=== PATIENT | female | born 1985 | race Hispanic/Latino ===

== ENCOUNTER 2022-03-14 20:34 | Emergency (ER) | payer SELFPAY ==
--- OUTSIDE RECORDS SUMMARY | 2022-03-14 20:39 | XMS REPORT | Continuity of Care Document ---
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 [address] boss 38 [id number] Memoria 16:30:00 05:59:59 Clinic r [place] 14 nalini Moe 2018-05-21 2018-05-21 Outpatient Magalis [facility] [id number] 10:30:00 23:59:59 [facility] 2018-05-21 2018-05-21 Outpatient MHIE IE [id number] Memoria 10:30:00 10:30:00 14 nalini Rosa 2018-05-11 2018-05-11 Ambulatory nullFlavo [facility] [address] boss 3 [id number] Memoria 15:15:00 15:15:00 Pre-Reg r [place] 10 nalini Rosa 2018-05-11 2018-05-11 Outpatient IE IE [id number] Memoria 09:15:00 09:15:00 10 nalini Rosa 2018-05-11 2018-05-11 Outpatient Magalis [facility] [id number] 09:15:00 09:15:00 Arabella [facility] 2018-04-23 2018-04-24 OP Poiser nullFlavo 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 3 [id number] Memoria 16:45:00 05:59:59 r [place] 12 nalini [place] 2018-03-26 2018-03-27 [address]avo [facility] [address] boss 3 [id number] Memoria 16:00:00 05:59:59 r [place] 11 nalini Moe 2018-03-26 2018-03-26 [facility] [id number] 10:45:00 23:59:59 Arabella 12 [place] 2018-03-26 2018-03-26 [facility] [id number] 10:00:00 23:59:59 Arabella [facility] 2018-03-26 2018-03-26 Outpatient MHIE MHIE [id number] Memoria 10:45:00 10:45:00 12 nalini [place] 2018-03-26 2018-03-26 Outpatient MHIE MHIE [id number] Memoria 10:00:00 10:00:00 11 nalini Moe 2018-02-26 2018-02-28 [address] [place] [address] boss [id number] Memoria 14:40:00 05:59:59 Message r [place] 00 nalini Rosa 2018-02-26 2018-02-27 [facility] [id number] 08:40:00 23:59:59 00 2018-02-13 2018-02-14 Outpatient nullFlavo [place] [address] boss 3 [id number] Memoria 15:00:00 05:59:59 r [place] 09 nalini Moe 2018-02-13 2018-02-13 [facility] [id number] 09:00:00 23:59:59 Arabella 09 Dip[place]ird[place] 2018-02-13 2018-02-13 Outpatient MHIE MHIE [id number] Memoria 09:00:00 09:00:00 09 nalini Rosa 2017-03-18 2017-03-18 Emergency [facility] [id number] Memoria 03:06:00 04:30:00 karen Rosa 03 nalini esquivel 2017-03-17 2017-03-17 Outpatient Marvel, MHSL MHSL [id number] 21:06:00 22:30:00 Anastasiya Juan Antonio Pyle 2016-09-19 2016-09-19 Outpatient MHIE MHIE [id number] Memoria 14:00:00 14:00:00 08 nalini Rosa 2016-09-16 2016-09-16 Outpatient MHIE MHIE [id number] Memoria 09:15:00 09:15:00 07 nalini Rosa 2016-05-27 2016-05-27 Outpatient MHIE MHIE [id number] Memoria 13:45:00 13:45:00 06 nalini Rosa 2016-02-15 2016-02-15 Outpatient MHIE MHIE [id number] Memoria 11:30:00 11:30:00 05 nalini Rosa 2015-10-26 2015-10-26 Outpatient MHIE MHIE [id number] Memoria 11:30:00 11:30:00 04 nalini Rosa 2015-08-07 2015-08-07 Outpatient MHIE MHIE [id number] Memoria 13:30:00 13:30:00 03 nalini Rosa 2014-12-10 2014-12-10 Outpatient MHIE MHIE [id number] Memoria 15:00:00 15:00:00 02 nalini Rosa 2014-11-07 2014-11-07 Outpatient MHIE MHIE [id number] Memoria 15:00:00 15:00:00 01 nalini Rosa 2014-11-07 2014-11-07 Outpatient MHIE MHIE [id number] Memoria 14:30:00 14:30:00 00 nalini Rosa Results Test Description Test Time Test Comments Results Result Comments Source POCT TEST 2022-02-10 14:27:00 Test Item Value Reference Range Interpretation Comme nts POCT PREG (test code = 1605) Positive On board controls acceptable with C Yes Line (test code = 3574) POCT PREG LOT # (test code = 3575) POCT PREG TEST DATE (test code = 3576) JEMAL (test code = JEMAL) accurate development and interpretation of all internal controls [facility] [id number] 04:44:25 Test Item Value Reference Range Interpretation Comments CHOLESTEROL (test 179 MG/DL <200 code = 2210) TRIGLYCERIDES (test 75 MG/DL <150 code = 2232) HDL CHOLESTEROL (test 49 MG/DL >39 code = 2220) CALC LDL CHOL (test 113 MG/DL <100 H NOTE: C ALCULATED LDL code = 2237) IS BASED ON ALEJANDRA-COLUNGA METHOD WHICHINCLUDES ADJUSTABLE TRIGLYCERIDE:VL DL CHOLESTEROL RAT IO.THIS FACTOR VARIES B Y MEASURED TRIGLY CERIDE AND NON-HDLCHOL ESTEROL CONCENTRATIONS WITH INCREASED CALCU LATED LDL SEENIN HIGH ER TRIGLYCERIDE OR LOWER NON-HDL SPECIME NS. FOR MOREINFORMATION , SEE CLIENT ANNOUNCE MENT AT [email or web address] LDL/HDL 2.31 RATIO <3.22 UNLESS O THERWISE (test code = 2238) INDICATED , ALL TESTING PERFORMED [facility], [address] DIRECTOR: DUNCAN HUANG M.D. CLIA NUMBER [id number] CAP ACCREDITATION N O. [id number] COMPREHENSIVE METABOLIC [id number] 04:44:25 Test Item Value Reference Range Interpretation Comments GLUCOSE (test code = 87 MG/DL 70-99 2216) BUN (test code = 9 MG/DL 6-20 2207) CREATININE (test 0.56 MG/DL 0.60-1.30 L EFFECTIVE code = 2214) 03/08/2021, [facility] HAS IMPLEMENTED THE NKF-ASN RECOMME NDED KD-EPI EGF R REFIT CALCULATI ON THAT DOES NOT INCLUDE A COEFFICIENT FOR RACE. FOR MORE INFORMATION, SE E ANNOUNCEMENT [email or web address] eGFR (2020 CKD-EPI) 124 >60 (test code = 07236) ML/MIN/1.73 CALC BUN/CREAT (test 16 RATIO 6-28 code = 2235) SODIUM (test code = 141 MEQ/L 815-275 4642) POTASSIUM (test code 4.5 MEQ/L 3.5-5.4 = 2227) CHLORIDE (test code 105 MEQ/L 95-107 = 2215) CARBON DIOXIDE (test 27 MEQ/L 19-31 code = 220) CALCIUM (test code = 9.4 MG/DL 8.5-10.5 2208) PROTEIN, TOTAL (test 7.2 G/DL 6.1-8.3 code = 2229) ALBUMIN (test code = 4.4 G/DL 3.5-5.2 2200) CALC GLOBULIN (test 2.8 G/DL 1.9-3.7 code = 2240) CALC A/G RATIO (test 1.6 RATIO 1.0-2.6 code = 2234) BILIRUBIN, TOTAL 0.2 MG/DL See_Comment [Automated message] (test code = 2206) The syste m which generated this result transmit luana reference range : <=1.2. The refe rence range was not u sed to interpret th is result as normal/abnormal . ALKALINE PHOSPHATASE 89 U/L 40-114 (test code = 2203) AST (test code = 28 U/L 9-40 2217) ALT (test code = 28 U/L 5-40 2218) TSH, THIRD [id number] 04:29:28 Test Item Value Reference Range Interpretation Comments TSH, THIRD GENERATION (test code 1.430 UIU/ML 0.400-4.100 = 2821) HEMOGLOBIN [id number] 03:59:27 Test Item Value Reference Range Interpretation Comments HEMOGLOBIN A1c (test code = 87569) 5.3 % 4.2-5.6 CBC W/AUTO DIFF WITH [id number] 03:18:31 Test Item Value Reference Range Interpretation Comments WBC (test code = 4.9 K/UL 3.5-11.0 1001) RBC (test code = 4.00 M/UL 3.80-5.40 1002) HEMOGLOBIN (test code 12.8 G/DL 11.5-15.5 = 1003) HEMATOCRIT (test code 36.9 % 34.0-45.0 = 1004) MCV (test code = 92.3 fL 80.0-99.0 1005) MCH (test code = 32.0 PG 25.0-33.0 1006) MCHC (test code = 34.7 G/DL 31.0-36.0 1007) RDW (test code = 11.5 % 11.5-15.0 1038) NEUTROPHILS (test 49.5 % NOTE: EFF ECTIVE code = 1008) 02/15/2021, REFERENCE INTER VALS AND FLAGGING FORRELATIVE (%) WBC DIFFERENTIAL WI LL BE ELIMINATED REDUNDANT TOABS OLUTE COUNTS.SEE [email or web address] _upda te LYMPHOCYTES (test 37.7 % code = 1010) MONOCYTES (test code 7.1 % = 1011) EOSINOPHILS (test 4.9 % code = 1012) BASOPHILS (test code 0.6 % = 1013) IMMATURE GRANYLOCYTES 0.2 % (test code = 1036) NUCLEATED RBCS (test 0.0 /100 See_Comment [Autom ated message] code = 1065) WBC'S The system [employer] generated this result transmit luana reference range : 0.0. The refere nce range was not u sed to interpret th is result as normal/abnormal . PLATELET COUNT (test 233 K/UL 130-400 code = 1015) ABSOLUTE NEUTROPHILS 2.43 K/UL 1.50-7.50 (test code = 1066) ABSOLUTE LYMPHOCYTES 1.85 K/UL 1.00-4.00 (test code = 1067) ABSOLUTE MONOCYTES 0.35 K/UL 0.20-1.00 (test code = 1068) ABSOLUTE EOSINOPHILS 0.24 K/UL 0.00-0.50 (test code = 1040) ABSOLUTE BASOPHILS 0.03 K/UL 0.00-0.20 (test code = 1069) ABS IMMATURE 0.01 K/UL 0.00-0.10 GRANULOCYTES (test code = 1020) ABS NUCLEATED RBCS 0.00 K/UL 0.00-0.11 (test code = 92054) [id number] 09:15:00 Test Item Value Reference Range Interpretation Comments Hct (test code = Hct) 31.6 36.0-48.0 [id number] 09:15:00 Test Item Value Reference Range Interpretation Comments Hgb (test code = Hgb) 10.8 12.0-16.0 [facility] BANK [id number] 22:51:00 Test Item Value Reference Range Interpretation Comments Antibody Scrn (test Positive 2(10/18/18 code = Antibody Scrn) 5:51 PM) [facility] [id number] 22:51:00 Test Item Value Reference Range Interpretation Comments ABO/Rh (test code = ABO/Rh) O NEG [facility] [id number] 22:51:00 Test Item Value Reference Range Interpretation Comments AB Int (test code = AB Int) Rhig Anti-D [id number] 22:51:00 Test Item Value Reference Range Interpretation Comments WBC (test code = WBC) 9.8 3.7-10.4 [id number] 22:51:00 Test Item Value Reference Range Interpretation Comments MCV (test code = MCV) 94.4 80.0-98.0 [facility] [id number] 22:51:00 Test Item Value Reference Range Interpretation Comments Hct (test code = Hct) 36.0 36.0-48.0 [facility] [id number] 22:51:00 Test Item Value Reference Range Interpretation Comments Hgb (test code = Hgb) 12.3 12.0-16.0 [facility] [id number] 22:51:00 Test Item Value Reference Range Interpretation Comments RBC (test code = RBC) 3.81 4.20-5.40 [id number] 22:51:00 Test Item Value Reference Range Interpretation Comments MCHC (test code = MCHC) 34.1 32.0-36.0 [facility] [id number] 22:51:00 Test Item Value Reference Range Interpretation Comments MCH (test code = MCH) 32.2 pg 27.0-31.0 [facility] [id number] 22:51:00 Test Item Value Reference Range Interpretation Comments MPV (test code = MPV) 9.9 7.4-10.4 [facility] LufkinJwcxqwxDDZXFFVCJZ5120-40-05 22:51:00 Test Item Value Reference Range Interpretation Comments Platelet (test code = Platelet) 261 133-450 [facility] L[id number] 22:51:00 Test Item Value Reference Range Interpretation Comments RDW (test code = RDW) 12.8 11.5-14.5 [facility] [id number] 22:51:00 Test Item Value Reference Range Interpretation Comments Monocytes # (test code 0.7 See_Comment [Aut omated message] The = Monocytes #) system which generated this result tra nsmitted reference range : <=0.8. The reference r santos was not used to int erpret this result as normal/abnormal . [id number] 22:51:00 Test Item Value Reference Range Interpretation Comments Lymphocytes # (test code = Lymphocytes 1.7 1.0-5.5 #) [facility] [id number] 22:51:00 Test Item Value Reference Range Interpretation Comments Neutrophils # (test code = Neutrophils 7.4 1.5-8.1 #) [id number] 22:51:00 Test Item Value Reference Range Interpretation Comments Basophils (test code = 0.3 See_Comment [Aut omated message] The Basophils) system which ge nerated this result tra nsmitted reference range : <=1.0. The reference r santos was not used to int erpret this result as normal/abnormal . [facility] [id number] 22:51:00 Test Item Value Reference Range Interpretation Comments Eosinophils (test code = 0.2 See_Comment [A utomated message] The Eosinophils) system which ge nerated this result tra nsmitted reference range : <=4.0. The reference r santos was not used to int erpret this result as normal/abnormal . [facility]ufkinSxpmqdmXPMWBNUOLT6794-24-51 22:51:00 Test Item Value Reference Range Interpretation Comments Monocytes (test code = Monocytes) 6.6 2.0-12.0 [facility] [id number] 22:51:00 Test Item Value Reference Range Interpretation Comments Segs (test code = Segs) 75.2 45.0-75.0 [facility] [id number] 22:51:00 Test Item Value Reference Range Interpretation Comments Lymphocytes (test code = Lymphocytes) 17.7 20.0-40.0 [facility]woodStkdtmsSKZSPEAWLE8365-18-29 22:51:00 Test Item Value Reference Range Interpretation Comments Hep Bs Ag (test code Negative *NA*(10/18/18 = Hep Bs Ag) 5:51 PM) [id number] 22:51:00 Test Item Value Reference Range Interpretation Comments Treponemal Ab (test code Non-Reactive = Treponemal Ab) *NA*(10/18/18 5:51 PM) [facility]AirpxpbKNLIIYKEVC6805-64-20 22:51:00 Test Item Value Reference Range Interpretation Comments HIV. (test code = Negative *NA*(10/18/18 HIV.) 5:51 PM) [facility] [id number] 03:18:00 Test Item Value Reference Range Interpretation Comments Grp A Strep Scr (test Negative (03/17/17 9:18 code = Grp A Strep PM) Scr) [facility]ann[facility] - [id number] 03:18:00 Test Item Value Reference Range Interpretation Comments Influ A (test code = Negative (03/17/17 9:18 Influ A) PM) [facility] - [id number] 03:18:00 Test Item Value Reference Range Interpretation Comments Influ B (test code = Negative (03/17/17 9:18 Influ B) PM) [facility] 2016-10-11 10:44:00 Test Item Value Reference Range Interpretation Comments TROPONIN I (test code = A84) <0.015 ng/mL 0.000-0.045 CKMB (test code = A49) <1.0 ng/mL <=3.6 CPK (test code = 32A) 71 IU/L 26-192 COMPREHENSIVE METABOLIC YU 2016-10-11 10:41:00 Test Item Value Reference Range Interpretation Comments GLUCOSE (test code = 06D) 97 mg/dL 75-100 SODIUM (test code = 01A) 139 mmol/L 136-145 POTASSIUM (test code = 01B) 4.1 mmol/L 3.6-5.1 CHLORIDE (test code = 04A) 106 mmol/L 98-107 CO2 (test code = 02A) 26 mmol/L 22-32 ANION GAP (test code = ANG) 11.1 mmol/L BUN (test code = 05D) 10 mg/dL 7-18 CREATININE (test code = 03E) 0.6 mg/dL 0.4-1.1 BUN/CREA (test code = BCR) 16 12-20 CALCIUM (test code = 09D) 8.5 mg/dL 8.3-9.5 BILI TOTAL (test code = 11A) 0.3 mg/dL 0.2-1.0 PROTEIN (test code = 07D) 7.9 g/dL 6.4-8.2 ALBUMIN (test code = 08D) 4.0 g/dL 3.5-4.8 GLOBULIN (test code = GLB) 3.9 g/dL 1.5-3.8 H ALB/GLOB (test code = AGRR) 1.0 1.0-2.6 ALK PHOS (test code = 35A) 100 IU/L 42-121 AST (test code = 30A) 21 IU/L <=42 ALT (test code = 31A) 21 IU/L <=78 CBC (INCLUDES AUTOMATED DIFFERENTIAL)*[id number] 10:21:00 Test Item Value Reference Range Interpretation Comments WBC (test code = WBC) 5.5 10\\S\\3/uL 4.5-11.0 RBC (test code = RBC) 3.97 10\\S\\6/uL 4.30-5.70 L HGB (test code = HBG) 12.7 g/dL 12.0-15.5 HCT (test code = HCT) 38.4 % 35.0-44.0 MCV (test code = MCV) 96.7 fL 81.0-99.0 MCH (test code = MCH) 32.0 pg 27.0-31.0 H MCHC (test code = MCHC) 33.1 g/dL 32.0-36.0 RDW (test code = RDW) 11.6 % 11.5-14.5 PLT (test code = PLT) 246 10\\S\\3/uL 130-400 MPV (test code = MPV) 11.4 fL 9.4-12.4 NEUTROP # (test code = NE#) 3.4 10\\S\\3/uL 1.6-8.0 LYMPH # (test code = LY#) 1.7 10\\S\\3/uL 1.1-3.5 MONOCYTE # (test code = MO#) 0.3 10\\S\\3/uL 0.0-1.1 EOSINOPH # (test code = EO#) 0.1 10\\S\\3/uL 0.0-0.7 BASOPHIL # (test code = BA#) 0.1 10\\S\\3/uL 0.0-0.3 IG # (test code = IG#) 0.01 10\\S\\3/uL 0.00-0.06 NRBC # (test code = NRBC#) 0.00 10\\S\\3/uL 0.00-0.01 NEUTROPH % (test code = NE%) 61.4 % 35.0-73.0 LYMPH % (test code = LY%) 30.1 % 20.0-55.0 MONO % (test code = MO%) 6.1 % 2.5-10.0 EOSINOPH % (test code = EO%) 1.3 % 0.0-5.0 BASOPHIL % (test code = BA%) 0.9 % 0.0-2.0 IG % (test code = IG%) 0.2 % 0.0-0.8 NRBC% (test code = NRBC%) 0.0 % 0.0-0.2 MANDIFF (test code = WMDIFF) NO NO RBC MORPH (test code = NORMAL WRBCMOR) XR CHEST 1 VIEW PORTABLE 2016-10-11 10:13:23Portable AP chest, 1 viewLocation Code: [id number] HISTORY: CPCOMPARISON: 12/19/11COMMENT: The lungs are clear and well inflated. The costophrenic angles are sharp. Thecardiomediastinal silhouette is unremarkable. The bones are intact.IMPRESSION: No acute abnormality
[2022-03-14 21:04] LABS: Urine Blood 2+ (Negative); Urine Glucose Negative (Negative); Urine Protein Negative (Negative); Urine Specific Gravity >=1.030 (1.005-1.030); Urine pH 5.5 (5.0-7.0)
[2022-03-14 21:17] LABS: Urine Bacteria None Seen /HPF (<20); Urine Mucus 1+ /HPF (None Seen); Urine RBC <5 /HPF (None Seen)
[2022-03-14 21:21] LABS: Absolute Lymphocytes (CBC) 1.6 K/uL (0.7-4.9); Hematocrit 35.2 % (36.0-45.0); Lymphocytes % 31.4 % (15.3-44.8); MCV 93.9 fL (80-100); MPV 9.1 fL (7.6-11.3); RBC Red Blood Cell Count 3.75 M/uL (3.86-4.86)
[2022-03-14 21:50] LABS: Potassium 3.2 mmol/L (3.5-5.1)
--- NOTE | 2022-03-14 22:20 | RAD REPORT ---
EXAM DESCRIPTION: US - Transvaginal OB - 03/14/2022 10:05 pm CLINICAL HISTORY: with pelvic pain COMPARISON: None. FINDINGS: The uterus measures 10 x 5 x 6 centimeters. A normal appearing gestational sac is present within the endometrium. Within this is a yolk sac and pole with a crown-rump length 0.4 centim eters. Cardiac activity was not visualized Right and left ovary appear normal. Left ovary normal in size and echotexture. Right ovary not visualized secondary to overlying bowel ga s No significant free fluid is seen. IMPRESSION: Single intrauterine with an estimated gestational age 6 weeks 2 days GRACIA 10/25 Cardiac activity at not visualized. This may simply be secondary to the early gestation and technical factors. Failed is another consideration. It is recommended that the patient have a follow up endovaginal sonogram in 1 week for re-evaluation
[2022-03-14 22:28] LABS: Urine Specific Gravity/Preg >1.030 (1.005-1.030)
--- NOTE | 2022-03-14 22:30 | ER ---
Nurse's Notes [facility] Name: Lizz Malagon Age: 36 yrs Sex: Female : 1985 Arrival Date: 03/14/2022 Time: 20:37 Bed 5 Private MD: Diagnosis: Threatened Presentation: 03/14 20:50 Chief complaint: Light vaginal bleeding and pain in low back and lower abdomen since hb this afternoon. Reports positive home test, LMP 01/13, . Coronavirus screen: At this time, the client does not indicate any symptoms associated with coronavirus-19. Ebola Screen: No symptoms or risks identified at this time. Initial Sepsis Screen: Does the patient meet any 2 criteria? No. Patient's initial sepsis screen is negative. Does the patient have a suspected source of infection? No. Patient's initial sepsis screen is negative. Risk Assessment: Do you want to hurt yourself or someone else? Patient reports no desire to harm self or others. Onset of symptoms was March 14, 2022. 20:50 Method Of Arrival: Ambulatory 20:50 Acuity: IESHA 3 Triage Assessment: 21:11 General: Appears in no apparent distress. comfortable, Behavior is calm, cooperative, aa9 appropriate for age. Pain: Complains of pain in lower abd, lower back Pain currently is 6 out of 10 on a pain scale. Quality of pain is described as crampy. Neuro: Level of Consciousness is awake, alert, obeys commands, Oriented to person, place, time, situation. Cardiovascular: Patient's skin is warm and dry. Respiratory: Airway is patent Respiratory effort is even, unlabored. GI: No signs and/or symptoms were reported involving the gastrointestinal system. : Reports vaginal bleeding that is spotty. Derm: Skin is intact, is healthy with good turgor. 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 - Family history:: not pertinent. - Social history:: Smoking status: unknown. - Hospitalizations: : No recent hospitalization is reported. Screenin:13 Nutritional screening: No deficits noted. Tuberculosis screening: No symptoms or risk aa9 factors identified. Fall Risk No fall in past 12 months (0 pts). No secondary diagnosis (0 pts). IV access (20 points). Ambulatory Aid- None/Bed Rest/Nurse Assist (0 pts). Gait- Normal/Bed Rest/Wheelchair (0 pts) Mental Status- Oriented to own ability (0 pts). Total Tyson Fall Scale indicates No Risk (0-24 pts). 21:14 Abuse screen: Denies threats or abuse. Denies injuries from another. aa9 03/15 00:01 [facility] ED Fall Risk Assessment (Adult) History of falling in the last 3 months, aa9 including since admission No falls in past 3 months (0 pts). Humpty Dumpty Scale Fall Assessment Tool (age< 18yrs) Age 13 years and above (1 pt) Gender Female (1 pt) Diagnosis Other diagnosis (1 pt) Cognitive Impairments Oriented to own ability (1 pt) Environmental Factors Outpatient area (1 pt) Response to Surgery/Sedation/Anesthesia More than 48 hours/ None (1 pt) Medication Usage Other medications/ None (1 pt) Fall Risk Score/ Level Low Fall Risk: </= 11 points Oriented to surroundings, Educated pt \T\ family on fall prevention, incl. call for assistance when getting out of bed. Assessment: 03/14 22:51 Reassessment: Patient appears in no apparent distress at this time. aa9 22:55 Reassessment: discharge pending RhoGAM shot. aa9 Vital Signs: 20:50 BP 119 / 81; Pulse 69; Resp 16; Temp 98.3; Pulse Ox 100% on R/A; Weight 65.77 kg; hb Height 5 ft. 2 in. (157.48 cm); Pain 6/10; 20:50 Body Mass Index 26.52 (65.77 kg, 157.48 cm) hb ED Course: 20:37 Patient arrived in ED. as 20:39 Ken Bello MD is Attending Physician. rn 20:53 Triage completed. hb 20:54 Arm band placed on. hb 21:11 Sydney Diego, RN is Primary Nurse. aa9 21:12 No provider procedures requiring assistance completed. Inserted saline lock: 20 gauge aa9 in right antecubital area, using aseptic technique. Blood collected. 21:13 Abo/rh Typing Sent. aa9 21:13 Basic Metabolic Panel Sent. aa9 21:13 CBC with Diff Sent. aa9 21:13 Quantitative Hcg Sent. aa9 21:13 Urine Microscopic Only Sent. aa9 21:16 Patient has correct armband on for positive identification. Bed in low position. Call aa9 light in reach. Adult w/ patient. 22:07 US Transvaginal Ob In Process Unspecified. EDMS 03/15 00:01 IV discontinued, intact, bleeding controlled, No redness/swelling at site. Pressure aa9 dressing applied. Administered Medications: 03/14 23:54 Drug: RhoGAM (Human) 300 mcg Route: IM; Site: left ventrogluteal; aa9 Medication: 21:16 VIS not applicable for this client. aa9 Outcome: 22:30 Discharge ordered by . rn 03/15 00:00 Discharged to home ambulatory, with family. aa9 Condition: stable Discharge instructions given to patient, family, Instructed on discharge instructions, follow up and referral plans. Demonstrated understanding of instructions, follow-up care. 00:01 Patient left the ED. aa9 Signatures: Dispatcher [employer] ANDREWHI Katherine Elam Roman, MD MD rn Baxter, Heather, RN RN hb Avalos, Aylin, RN RN aa9
--- NOTE | 2022-03-14 22:30 | EDPHYS ---
Physician Documentation [facility] Name: Lizz Malagon Age: 36 yrs Sex: Female : 1985 Arrival Date: 03/14/2022 Time: 20:37 Bed 5 Private MD: ED Physician Ken Bello HPI: 03/14 21:11 This 36 yrs old Female presents to ER via Ambulatory with complaints of rn Vaginal Bleeding, + Preg <12wks, Low Back Pain, Abdominal Pain. 21:11 The patient presents to the emergency department with abdominal pain, of the suprapubic rn area, that started today, described as crampy, vaginal bleeding, that is light, with no clots. The estimated gestational age is 8 weeks. course: care: none, Leakage of Fluid: none appreciated, Ultrasound: the patient has not had an ultrasound. Previous pregnancies: in previous pregnancies patient has had. Associated signs and symptoms: Pertinent positives: abdominal pain, Pertinent negatives: chest pain, fever, frequency, seizure, vaginal discharge. The patient has not experienced similar symptoms in the past. The patient has not recently seen a physician. Pt reports lower abd and back cramping, assoc with light vaginal bleeding, is approx 8 weeks preg. No trauma. No urinary symptoms. Does report in RH-. . SUPPORT TEAM ASSOC: 21:13 4, Full Term 1, Premature 2, 1, Living 2, LMP 01/13/2022 aa9 Historical: - Allergies: 20:53 No Known Allergies; hb - Home Meds: 21:15 Vitamin Oral [Active]; aa9 - PMHx: 21:15 None; aa9 - PSHx: 21:15 None; aa9 - Immunization history:: Adult Immunizations up to date. - Family history:: not pertinent. - Social history:: Smoking status: unknown. - Hospitalizations: : No recent hospitalization is reported. ROS: 21:11 Constitutional: Negative for fever, chills, and weight loss, Eyes: Negative for injury, rn pain, redness, and discharge, Neck: Negative for injury, pain, and swelling, Cardiovascular: Negative for chest pain, palpitations, and edema, Respiratory: Negative for shortness of breath, cough, wheezing, and pleuritic chest pain, Abdomen/GI: + lower abd pain Back: + lower back cramping : + vaginal bleeding MS/Extremity: Negative for injury and deformity, Skin: Negative for injury, rash, and discoloration, Neuro: Negative for headache, weakness, numbness, tingling, and seizure. Exam: 21:11 Constitutional: This is a well developed, well nourished patient who is awake, alert, rn and in no acute distress. Head/Face: Normocephalic, atraumatic. Cardiovascular: Regular rate and rhythm. No pulse deficits. Respiratory: No increased work of breathing, no retractions or nasal flaring. Abdomen/GI: soft, mild suprapubic and bilateral lower abd tenderness, no peritoneal signs. Back: No spinal tenderness. No costovertebral tenderness. Full range of motion. Skin: Warm, dry MS/ Extremity: Pulses equal, no cyanosis. Neuro: Awake and alert, GCS 15 Vital Signs: 20:50 BP 119 / 81; Pulse 69; Resp 16; Temp 98.3; Pulse Ox 100% on R/A; Weight 65.77 kg; hb Height 5 ft. 2 in. (157.48 cm); Pain 6/10; 20:50 Body Mass Index 26.52 (65.77 kg, 157.48 cm) hb MDM: 20:39 Patient medically screened. rn 22:29 Differential diagnosis: ectopic . Data reviewed: vital signs, nurses notes, substance abuse rn test result(s), radiologic studies, ultrasound, and as a result, I will discharge patient. Counseling: I had a detailed discussion with the patient and/or guardian regarding: the historical points, exam findings, and any diagnostic results supporting the discharge/admit diagnosis, lab results, radiology results, the need for outpatient follow up, to return to the emergency department if symptoms worsen or persist or if there are any questions or concerns that arise at home. Special discussion: I discussed with the patient/guardian in detail that at this point there is no indication for admission to the hospital. It is understood, however, that if the symptoms persist or worsen the patient needs to return immediately for re-evaluation. Based on the history and exam findings, there is no indication for further emergent testing or inpatient evaluation. I discussed with the patient/guardian the need to see the OB Gyne specialist for further evaluation of the symptoms. 03/14 20:48 Order name: Abo/rh Typing rn 03/14 20:48 Order name: Basic Metabolic Panel; Complete Time: 21:58 rn 03/14 20:48 Order name: CBC with Diff; Complete Time: 21:58 rn 03/14 20:48 Order name: Quantitative Hcg; Complete Time: 21:58 rn 03/14 20:48 Order name: Urine Microscopic Only; Complete Time: 21:18 rn 03/14 21:05 Order name: Urine Dipstick-Ancillary; Complete Time: 21:18 EDPR 03/14 20:48 Order name: US Transvaginal Ob; Complete Time: 22:29 rn 03/14 21:33 Order name: Urine --Ancillary (enter results); Complete Time: 22:29 wm 03/14 22:45 Order name: Rh Typing [facility] 03/14 22:45 Order name: Antibody Screen [facility] 03/14 22:45 Order name: Fetalscreen [facility] 03/14 22:45 Order name: Cord Rh type [facility] 03/14 22:45 Order name: Rhogam [facility] 03/14 23:11 Order name: ABO/RH no charge [facility] 03/14 20:48 Order name: IV Saline Lock; Complete Time: 21:13 rn 03/14 20:48 Order name: Labs collected and sent; Complete Time: 21:13 rn 03/14 20:48 Order name: NPO; Complete Time: 21:13 rn 03/14 20:48 Order name: Urine Dipstick-Ancillary (obtain specimen); Complete Time: 21:13 rn 03/14 20:48 Order name: Urine Test (obtain specimen); Complete Time: 21:13 rn Administered Medications: 23:54 Drug: RhoGAM (Human) 300 mcg Route: IM; Site: left ventrogluteal; aa9 Disposition Summary: 03/14/22 22:30 Discharge Ordered Location: Home rn Problem: new rn Symptoms: have improved rn Condition: Stable rn Diagnosis - Threatened rn Followup: rn - With: Private Physician - When: 48 Hours - Reason: Recheck today's complaints, Repeat Beta-HCG (48 Hours), Re-evaluation by your physician Discharge Instructions: - Discharge Summary Sheet rn - Threatened Miscarriage rn - Vaginal Bleeding During , First Trimester rn Forms: - Medication Reconciliation Form rn - Thank You Letter rn - Antibiotic internal revenue agent - Prescription Opioid Use rn Signatures: Dispatcher [employer] EDKen Kent MD MD rn Monica Pyle, RN RN hb Sydney Diego, RN RN aa9
[2022-03-15 00:15] VITALS: BP 119/81; TEMP 98.3; O2SAT 100
== END 2022-03-15 00:01 | disposition home or self-care (01) ==
LOC: ER 20:34
DX: O20.0 Threatened abortion (principal); Z3A.08 8 weeks gestation of pregnancy
CPT/HCPCS: 36415; 76817; 80048; 81003; 81015; 81025; 84702; 85025; 86850; 86900; 86901; 96372; 99284; J2790

== ENCOUNTER 2022-03-16 19:05 | Emergency (ER) | payer SELFPAY ==
--- OUTSIDE RECORDS SUMMARY | 2022-03-16 19:10 | XMS REPORT | Continuity of Care Document ---
:1985 Author Organization [facility] t Address [address] [place] [address] Care Team Providers Name Role Phone Yulia Ma Primary Care Physician Visit, Francisco Nurse Attending Clinician Unavailable Bernie Galicia Attending Clinician [phone] BERNIE CRUZ Attending Clinician Unavailable Jhoan Marcus Attending Clinician JHOAN MARCUS Attending Clinician Unavailable Arabella Kat Attending [...] 05-19 16:47:00 l 03/18/2020 20:30: Max morrissey [place] [id number] [place] LEAKING LEAKING Diagnosis Active 2018-10-18 Memoria FLUID FLUID 10-18 17:48:00 l Active 08:00: Bledsoe 10/18/2018 00 Josie Aguirre VAGINAL VAGINAL Diagnosis Active 2018-09-21 Memoria DELIVERY DELIVERY 10-25 08:45:00 l Active 08:00: Moe 10/25/2017 00 Josie Aguirre Amenorrhea Amenorrhe Problem Active 2020-03-20 Memoria (finding) a 10-13 23:23:07 l (finding) 00:00: Bledsoe Active 00 10/13/2014 Problem 03/20/2020 Data migrated [...] migrated from [employer] on 08/23/14. [facility] Contracept Contracep Problem Active 2020-03-20 Memoria ion care tion care 11-16 23:23:07 l [...] Memor ia (disorder) (disorder) 23:23:07 l Active Bledsoe Problem 03/20/2020 [facility], [facility] Goss Furuncle Furuncle Problem Active 2020-03-20 Memoria of neck of neck 23:23:07 l (disorder) (disorder) He rmann Active Problem 03/20/2020 [facility] Goss Multigravi Problem Active 2020-03-20 M emoria da Multigravi 23:23:07 l (finding) da Bledsoe (finding) Active Problem 03/20/2020 [facility], Reed Goss Patient Patient Problem Resolve 2017-032020-03-20 2020-03-20 Memoria currently currently d 1-04 23:23:07 23:23:07 l 00:00: Max n (finding) (finding) 00 Resolved 01/28/2018 Problem 03/20/2020 Medical Group, [facility]oss Acute Acute Problem Resolve 2020-03-20 2020-03-20 Memoria pharyngiti pharyngiti d - 23:23:07 23:23:07 l s s 00:00: Moe (disorder) (disorder) 00 Resolved 04/11/2012 Problem 03/20/2020 Data migrated from [employer] on 10/11/14. [facility] Reed Goss Upper Upper Problem Resolve 2020-03-20 2020-03-20 Memoria respirator respirator d 11-16 23:23:07 23:23:07 l y y 00:00: Moe infection infection 00 (disorder) (disorder) Resolved 11/17/2011 Problem 03/20/2020 Data migrated from [employer] on 10/11/14. [facility] History of Past Illness Condition Condition Condition Status Onset Resolution Last Treating Co mments Source Name Details Category Date Date Treatment Clinician Date Acute Acute Problem 2016-032017-03-20 2017-03-20 M emoria pharyngiti pharyngiti 05-18 04:39:07 04:39:07 l s, s, 06:00: Bledsoe unspecifie unspecifie 00 d d 03/17/2017 03/20/2017 [facility] Cough Cough Problem 2016-2017-03-20 2017-03-20 Memoria 03/17/2017- 04:39:07 04:39:07 l 03/20/2017 06:00: Max ANDERSON [place] [employer] [place] Allergies, Adverse Reactions, Alerts Allergy Allergy Status Severity Reaction(s) Onset Inactive Treating Comm ents Source Name Type Date Date Clinician NO KNOWN Drug Active [facility] Social History Social Habit Start Date Stop Date Quantity Comments Source Exposure to 2022-01-31 2022-02-10 Not sure [facility] SARS-CoV-2 (event) [facility]:00[facility]00 [facility] Social History 2018-10-19 2018-10-19 [facility] 00:28:06 00:28:06 Sex Assigned At [birth year] [facility] 00:00:00 00:00:00 [facility] Smoking Status Start Date Stop Date Source Tobacco smoking consumption [facility] Medications Ordered Filled Start Stop Current Ordering Indication Dosage Frequency Signature Comments Components Source Medication Medication Date Date Medication? Clinician (SIG) Name Name ibuprofen Yes 600 mg = 1 Me moria 600 mg oral 7-27 tab, PO, l tablet 13:31: Q6H, PRN Bledsoe 00 Pain, take with food, X 30 day, # 30 tab, 0 Refill(s) ibuprofen Yes 600 mg = 1 Me moria 600 mg oral 7-27 tab, PO, l tablet 13:31: Q6H, PRN Moe 00 Pain, take with food, X 30 day, # 30 tab, 0 Refill(s) Ibuprofen No Notes: Memori a 10-19 (Same as: nalini 14:00: Motrin) Moe 00 "Do Not Crush" Take with food. No 1 tab, Memoria Multivitami 10-19 Route: PO, l ns oral 14:00: Drug Form: Herm christiano tablet 00 TAB, Dosing Weight 81.364, kg, Daily, Start date: 10/19/18 9:00:00 CDT, Duration: 30 day, Stop date: 11/17/18 9:00:00 CDT, 0 -M-R II No Notes: Memoria 10-19 (Same as: l 14:00: M-M-R II) Bledsoe 00 (measles-m umps-rubel la virus vaccine 0.5 ml INJ VL) WASTE: F/P - Red; E -Red GIVE PRIOR TO DISCHARGE Ibuprofen No Notes: Memori a 10-19 (Same as: l 14:00: Motrin) Moe "Do Not Crush" Take with food. No 1 tab, Memoria Multivitami 10-19 Route: PO, l ns oral 14:00: Drug Form: Herm christiano tablet 00 TAB, Dosing Weight 81.364, kg, Daily, Start date: 10/19/18 9:00:00 CDT, Duration: 30 day, Stop date: 11/17/18 9:00:00 CDT, 0 -M-R II No Notes: Memoria 10-19 (Same as: l 14:00: M-M-R II) Bledsoe (measles-m umps-rubel la virus vaccine 0.5 ml INJ VL) WASTE: F/P - Red; E -Red GIVE PRIOR TO DISCHARGE Acetaminoph No Notes: Sylvester suzy en 325 MG / 10-19 (Same as: l Hydrocodone 13:18: [place] Tabitha nn Bitartrate 00 325/5) Do 5 MG Oral not exceed Tablet 4gm/day of acetaminop hen. Acetaminoph No Notes: Do M emoria en 325 MG / 10-19 not exceed l Hydrocodone 13:18: 4gm/day of Bledsoe Bitartrate 00 acetaminop 10 MG Oral hen. (Same Tablet as: [place] 325/10) Bisacodyl No Notes: Memori a 10-19 (Same As: l 13:18: Dulcolax, Bledsoe 00 Correctol) (Do Not Crush) "Do Not Crush" Benzocaine No Notes: Memor ia 200 MG/ML 10-19 (Same As: l Topical 13:18: Dermoplast Herm christiano [place] ) WASTE: [Dermoplast Aerosol - ] Return to Pharmacy FOR EXTERNAL USE ONLY Docusate No Notes: Memoria 10-19 (Same as: l 13:18: Colace) (Do Not Crush) zolpidem No Notes: Memoria 10-19 (Same As: l 13:18: Ambien) Bledsoe lanolin No Notes: Memoria topical 10-19 (Same l 13:18: as:Lanolin ) Methylergon No Notes: Sylvester suzy ovine 10-19 (Same l 13:18: as:Metherg ine) Oxytocin No 30 unit, Memor ia 10-19 500 mL, l 13:18: Rate: 42 Bledsoe 00 ml/hr, Infuse over: 11.9 hr, Dosing Weight 81.364, kg, Route: IV, Total Volume: 500 mL, Start date: 10/19/18 8:18:00 CDT, Duration: 2 day, Stop date: 10/21/18 8:17:00 CDT, Replace Every: 11.9 hr, 0 Ondansetron No Notes: Sylvester suzy 10-19 (Same as: l 13:18: Zofran) MEDICATION WASTE Product Size: 4 mg Product Wasted: ___ mg Lactated No 1,000 mL, Sylvester suzy Ringers IV 10-19 Rate: 100 l 1,000 mL 13:18: ml/hr, Moe 00 Infuse over: 10 hr, Route: IV, Dosing Weight 81.364 kg, Total Volume: 1,000, Start date: 10/19/18 8:18:00 CDT, Duration: 30 day, Stop date: 11/18/18 8:17:00 CDT, 1.93, m2, 0 Acetaminoph No Notes: Sylvester suzy en 325 MG / 10-19 (Same as: l Hydrocodone 13:18: [place] Tabitha nn Bitartrate 00 325/5) Do 5 MG Oral not exceed Tablet 4gm/day of acetaminop hen. Acetaminoph No Notes: Do M emoria en 325 MG / 10-19 not exceed l Hydrocodone 13:18: 4gm/day of Moe Bitartrate 00 acetaminop 10 MG Oral hen. (Same Tablet as: [place] 325/10) Bisacodyl No Notes: Memori a 10-19 (Same As: l 13:18: Dulcolax, Moe Correctol) (Do Not Crush) "Do Not Crush" Benzocaine No Notes: Memor ia 200 MG/ML 10-19 (Same As: l Topical 13:18: Dermoplast Herm christiano [place] 00 ) WASTE: [Dermoplast Aerosol - ] Return to Pharmacy FOR EXTERNAL USE ONLY Docusate No Notes: Memoria 10-19 (Same as: l 13:18: Colace) Moe (Do Not Crush) zolpidem No Notes: Memoria 10-19 (Same As: l 13:18: Ambien) Bledsoe lanolin No Notes: Memoria topical 10-19 (Same l 13:18: as:Lanolin Moe 00 ) Methylergon No Notes: Sylvester suzy ovine 10-19 (Same l 13:18: as:Metherg Bledsoe ine) Oxytocin No 30 unit, Memor ia 10-19 500 mL, l 13:18: Rate: 42 Moe 00 ml/hr, Infuse over: 11.9 hr, Dosing Weight 81.364, kg, Route: IV, Total Volume: 500 mL, Start date: 10/19/18 8:18:00 CDT, Duration: 2 day, Stop date: 10/21/18 8:17:00 CDT, Replace Every: 11.9 hr, 0 Ondansetron No Notes: Sylvester suzy 10-19 (Same as: l 13:18: Zofran) MEDICATION WASTE Product Size: 4 mg Product Wasted: ___ mg Lactated No 1,000 mL, Sylvester suzy Ringers IV 10-19 Rate: 100 l 1,000 mL 13:18: ml/hr, Moe Infuse over: 10 hr, Route: IV, Dosing Weight 81.364 kg, Total Volume: 1,000, Start date: 10/19/18 8:18:00 CDT, Duration: 30 day, Stop date: 11/18/18 8:17:00 CDT, 1.93, m2, 0 Sodium 2019-0 No 1,000 mL, Memori a Chloride 7-26 Rate: l 0.9% 09:55: Titrate, Moe (titrate) 00 Dosing 1,000 mL Weight 81.364, kg, Route: MISC, Total Volume: 1,000, Start Date: 10/19/18 4:55:00 CDT, Duration: 30 day, Stop date: 11/18/18 4:54:00 CDT, Replace Every: 24 hr, 0 Sodium 2019-0 No 1,000 mL, Memori a Chloride 7-26 Route: l 0.9% 09:55: VAG, Drug Moe (Bolus) IV 00 form: INJ, PRN, Dosing Weight 81.364 kg, Start date: 10/19/18 4:55:00 CDT, Duration: 30 day, Stop date: 11/18/18 4:54:00 CDT, PRN See Nurse's Notes, 0 Sodium 2019-0 No 1,000 mL, Memori a Chloride 7-26 Rate: l 0.9% 09:55: Titrate, Moe (titrate) 00 Dosing 1,000 mL Weight 81.364, kg, Route: MISC, Total Volume: 1,000, Start Date: 10/19/18 4:55:00 CDT, Duration: 30 day, Stop date: 11/18/18 4:54:00 CDT, Replace Every: 24 hr, 0 Sodium 2019-0 No 1,000 mL, Memori a Chloride 7-26 Route: l 0.9% 09:55: VAG, Drug Moe (Bolus) IV 00 form: INJ, PRN, Dosing Weight 81.364 kg, Start date: 10/19/18 4:55:00 CDT, Duration: 30 day, Stop date: 11/18/18 4:54:00 CDT, PRN See Nurse's Notes, 0 Fentanyl / 2019-0 No Notes: Memor ia ropivacaine 7-26 (Same as l 01:41: Naropin-Cardoso Bledsoe 00 blimaze) Fentanyl / 2018-0 No Notes: Memor ia ropivacaine 7-26 (Same as l 01:41: Naropin-Cardoso Moe 00 blimaze) Misoprostol 2018-0 No Notes: Sylvester suzy 7-25 (Same l 23:00: as:Cytotec Moe 00 ) Take with food Famotidine No Notes: Memor ia 7-25 (Same as: l 23:00: Pepcid) Bledsoe 00 Can be dilute in 5-10cc NS IVP: Slow IV push over at least 2 minutes. Citric Acid No Notes: Sylvester suzy / sodium 7-25 (Same As: l citrate 23:00: Bicitra) Max n 00 Methylergon No Notes: Sylvester suzy ovine 7-25 (Same l 23:00: as:Metherg Moe 00 ine) Tranexamic No Notes: Memor ia Acid 7-25 (Same As: l 23:00: Cyklokapro Moe 00 n) Carboprost No Notes: Memor ia 7-25 (Same As: l 23:00: Hemabate) Bledsoe 00 Misoprostol No Notes: Sylvester suzy 7-25 (Same l 23:00: as:Cytotec Bledsoe 00 ) Take with food Famotidine No Notes: Memor ia 7-25 (Same as: l 23:00: Pepcid) Bledsoe 00 Can be dilute in 5-10cc NS IVP: Slow IV push over at least 2 minutes. Citric Acid No Notes: Sylvester suzy / sodium 7-25 (Same As: l citrate 23:00: Bicitra) Max n 00 Methylergon No Notes: Sylvester suzy ovine 7-25 (Same l 23:00: as:Metherg Bledsoe 00 ine) Tranexamic No Notes: Memor ia Acid 7-25 (Same As: l 23:00: Cyklokapro Bledsoe 00 n) Carboprost No Notes: Memor ia 7-25 (Same As: l 23:00: Hemabate) Moe 00 Lidocaine No Notes: Memori a Hydrochlori 7-25 (Same as: l de 10 MG/ML 22:40: Xylocaine) Bledsoe Injectable 00 Solution Terbutaline No Notes: Sylvester suzy 7-25 DO NOT l 22:40: USE IN Bledsoe 00 AUTOMATION QTP TESTER AREA (Same As: Brethine) Ibuprofen No Notes: Memori a 7-25 (Same as: l 22:40: Motrin) Bledsoe 00 "Do Not Crush" Take with food. Ondansetron No Notes: Sylvester suzy 7-25 (Same as: l 22:40: Zofran) Bledsoe 00 MEDICATION WASTE Product Size: 4 mg Product Wasted: ___ mg Acetaminoph No Notes: Sylvester suzy en 325 MG / -25 (Same as: l Hydrocodone 22:40: [place] Tabitha nn Bitartrate 00 325/5) Do 5 MG Oral not exceed Tablet 4gm/day of acetaminop hen. Calcium No 1,000 mL, Memor ia Chloride 7-25 1,000 l 0.0014 22:40: ml/hr, Bledsoe MEQ/ML / 00 Infuse Potassium Over: 1 Chloride hr, Route: 0.004 IV, 1,000, MEQ/ML / Drug form: Sodium INJ, ONCE, Chloride Dosing 0.103 Weight MEQ/ML / 81.364 kg, Sodium Start Lactate date: 0.028 10/18/18 MEQ/ML 17:40:00 Injectable CDT, Stop Solution date: 10/18/18 17:40:00 CDT, Bolus for regional anesthesia per unit routine, 0 Oxytocin No 30 unit, Memor ia 7-25 500 mL, l 22:40: Rate: 42 Bledsoe 00 ml/hr, Infuse over: 11.9 hr, Dosing Weight 81.364, kg, Route: IV, Total Volume: 500 mL, Start date: 10/18/18 17:40:00 CDT, Duration: 2 day, Stop date: 10/20/18 17:39:00 CDT, Replace Every: 11.9 hr, 0 Lactated No 1,000 mL, Sylvester suzy Ringers IV 7-25 Rate: 125 l 1,000 mL 22:40: ml/hr, Moe 00 Infuse over: 8 hr, Route: IV, Dosing Weight 81.364 kg, Total Volume: 1,000, Start date: 10/18/18 17:40:00 CDT, Duration: 30 day, Stop date: 11/17/18 17:39:00 CDT, 1.93, m2, 0 Butorphanol No Notes: Sylvester suzy 7-25 (Same As: l 22:40: Stadol) Moe Lactated No 1,000 mL, Sylvester suzy Ringers IV 10-18 Rate: 125 l 1,000 mL 22:40: ml/hr, Infuse over: 8 hr, Route: IV, Dosing Weight 81.364 kg, Total Volume: 1,000, Start date: 10/18/18 17:40:00 CDT, Duration: 30 day, Stop date: 11/17/18 17:39:00 CDT, 1.93, m2, 0 Butorphanol No Notes: Sylvester suzy 7-25 (Same As: l 22:40: Stadol) Bledsoe Lidocaine No Notes: Memori a Hydrochlori -25 (Same as: l de 10 MG/ML 22:40: Xylocaine) Solution Terbutaline No Notes: Sylvester suzy 7-25 DO NOT l 22:40: USE IN Moe 00 AUTOMATION QTP TESTER AREA (Same As: Brethine) Ibuprofen No Notes: Memori a 7-25 (Same as: l 22:40: Motrin) "Do Not Crush" Take with food. Ondansetron No Notes: Sylvester suzy 7-25 (Same as: l 22:40: Zofran) MEDICATION WASTE Product Size: 4 mg Product Wasted: ___ mg Acetaminoph No Notes: Sylvester suzy en 325 MG / 10-18 (Same as: l Hydrocodone 22:40: [place] Tabitha nn Bitartrate 00 325/5) Do 5 MG Oral not exceed Tablet 4gm/day of acetaminop hen. Calcium No 1,000 mL, Memor ia Chloride -25 1,000 l 0.0014 22:40: ml/hr, MEQ/ML / 00 Infuse Potassium Over: 1 Chloride hr, Route: 0.004 IV, 1,000, MEQ/ML / Drug form: Sodium INJ, ONCE, Chloride Dosing 0.103 Weight MEQ/ML / 81.364 kg, Sodium Start Lactate date: 0.028 10/18/18 MEQ/ML 17:40:00 Injectable CDT, Stop Solution date: 10/18/18 17:40:00 CDT, Bolus for regional anesthesia per unit routine, 0 Oxytocin 2019-0 No 30 unit, Memor ia 7-25 500 mL, l 22:40: Rate: 42 Bledsoe 00 ml/hr, Infuse over: 11.9 hr, Dosing Weight 81.364, kg, Route: IV, Total Volume: 500 mL, Start date: 10/18/18 17:40:00 CDT, Duration: 2 day, Stop date: 10/20/18 17:39:00 CDT, Replace Every: 11.9 hr, 0 Oxytocin 2019-0 No 30 unit, Memor ia 7-25 500 mL, l 22:39: Rate: Moe 00 Titrate, Dosing Weight 81.364, kg, Route: IV, Total Volume: 500 mL, Start date: 10/18/18 17:39:00 CDT, Duration: 2 day, Stop date: 10/20/18 17:38:00 CDT, Replace Every: 24 hr, 0 Oxytocin 2019-0 No 30 unit, Memor ia 7-25 500 mL, l 22:39: Rate: Moe 00 Titrate, Dosing Weight 81.364, kg, Route: IV, Total Volume: 500 mL, Start date: 10/18/18 17:39:00 CDT, Duration: 2 day, Stop date: 10/20/18 17:38:00 CDT, Replace Every: 24 hr, 0 Classic 2018-0 Yes PO, Daily Memor ia 7-23 l 15:17: Classic 2019-0 Yes PO, Daily Memor ia 7-23 l 15:17: valACYclovi 2018-0 Yes 1 gm = 1 Me moria r 1 g oral 7-17 tab, PO, l tablet 20:14: Daily, X 30 day, # 30 tab, 1 Refill(s), Pharmacy: [facility] #[id number] valACYclovi Yes 1 gm = 1 Me moria r 1 g oral 7-17 tab, PO, l tablet 20:14: Daily, X 30 day, # 30 tab, 1 Refill(s), Pharmacy: [id number] RhoGAM 2019-0 No 300 Memoria Ultra-Filte 5-23 microgram, l red Plus 15:11: Route: IM, Her watkins 00 ONCE, Dosing Weight 77.273, kg, Start date: 08/16/18 10:11:00 CDT, Stop date: 08/16/18 10:11:00 CDT RhoGAM 2018-0 No 300 Memoria Ultra-Filte 5-23 microgram, l red Plus 15:11: Route: IM, Her watkins 00 ONCE, Dosing Weight 77.273, kg, Start date: 08/16/18 10:11:00 CDT, Stop date: 08/16/18 10:11:00 CDT Metronidazo No 1 appl, Mem oria le 0.0075 1-30 VAG, l MG/MG 12:04: Bedtime, X Max n Vaginal Gel 00 5 day, # 1 [MetroGel] ea, 0 Refill(s), Pharmacy: [id number] Metronidazo No 1 appl, Mem oria le 0.0075 1-30 VAG, l MG/MG 12:04: Bedtime, X Max n Vaginal Gel 00 5 day, # 1 [MetroGel] ea, 0 Refill(s), Pharmacy: [facility] #[id number] Metronidazo 2017-03 No 500 mg = 1 Memoria le 500 MG 1-26 tab, PO, l Oral Tablet 14:13: BID, X 7 He rmann 00 day, # 14 tab, 0 Refill(s), Pharmacy: [facility] #[id number] Metronidazo 2017-03 No 500 mg = 1 Memoria le 500 MG 1-26 tab, PO, l Oral Tablet 14:13: BID, X 7 He rmann 00 day, # 14 tab, 0 Refill(s), Pharmacy: [facility] #[id number] {2017-03 No 1 tab, PO, Memoria (Ethinyl 1-21 Daily, # l Estradiol 15:22: 28 tab, 11 He rmann 0.035 MG / 00 Refill(s), norgestimat Pharmacy: e 0.25 MG [id number] Tablet) / 7 (Inert Ingredients 1 MG Oral Tablet) } Pack [Sprintec 28 Day] {2017-03 No 1 tab, PO, Memoria (Ethinyl 1-21 Daily, # l Estradiol 15:22: 28 tab, 11 He rmann 0.035 MG / 00 Refill(s), norgestimat Pharmacy: e 0.25 MG [id number] Tablet) / 7 (Inert Ingredients 1 MG Oral Tablet) } Pack [Sprintec ] Tylenol 2016-03 Yes 5 ml, PO, Memor ia with 05-19 Q4H, PRN l Codeine 120 04:08: Cough, [...] 5 day, # 6 tab, 0 Refill(s) Tylenol 2016-03 Yes 5 ml, PO, Memor ia with 23 Q4H, PRN l Codeine 120 04:08: Cough, [...] ne 05-19 Route: IM, l 04:04: ONCE, Dosing Weight 72.727, kg, Priority: STAT, Start date: 03/17/17 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 Acetaminoph 2016-03 No Notes: Sylvester suzy en 325 MG / 2-23 (Same as: l Hydrocodone 03:46: [place] Tabitha nn Bitartrate 00 325/5) Do 5 MG Oral not exceed Tablet 4gm/day of [[place] acetaminop 5/325] hen. Immunizations Ordered Immunization Filled Immunization Date Status Commen ts Source Name Name diphtheria/pertussis 2018-08-16 Completed Sylvester rial , acel/tetanus adult 15:20:00 Herm christiano diphtheria/pertussis 2018-08-16 Completed Sylvester rial , acel/tetanus adult 15:20:00 Herm christiano Vital Signs Vital Name Observation Time Observation Value Comments Source Systolic blood 2022-02-10 14:22:00 111 mm[Hg] [facility] Diastolic blood 2022-02-10 14:22:00 69 mm[Hg] Unive rs[facility] Heart rate 2022-02-10 14:22:00 72 /min [facility] Body temperature 2022-02-10 14:22:00 36.78 [facility]ie [facility] 2022-02-10 14:22:00 18 /min [facility] Body height 2022-02-10 14:22:00 157.5 cm [facility] Body weight 2022-02-10 14:22:00 64.32 kg [facility] BMI 2022-02-10 14:22:00 25.94 kg/m2 [facility] Systolic (mm Hg) 2020-03-19 03:47:00 Sylvester rial [place] Diastolic (mm Hg) 2020-03-19 03:47:00 Mem orial Moe Heart Rate 2020-03-19 03:47:00 Memorial Moe Respitory Rate 2020-03-19 03:47:00 Memori al Moe Temperature Oral (F) 2020-03-19 03:47:00 98.6 F Memorial Moe Systolic (mm Hg) 2018-11-12 16:00:00 Sylvester rial Moe Diastolic (mm Hg) 2018-11-12 16:00:00 Mem orial Moe Heart Rate 2018-11-12 16:00:00 Memorial [place] Height 2018-11-12 16:00:00 154.94 cm Memorial Moe Weight 2018-11-12 16:00:00 Memorial Moe BMI Calculated 2018-11-12 16:00:00 Memori al Moe Respitory Rate 2018-10-21 15:15:00 Memori al Moe Systolic (mm Hg) 2018-10-21 15:15:00 Sylvester rial Moe Diastolic (mm Hg) 2018-10-21 15:15:00 Mem orial Moe Temperature Oral (F) 2018-10-21 15:15:00 98.5 F Memorial Moe Systolic (mm Hg) 2018-10-21 04:30:00 Sylvester rial [place]e Diastolic (mm Hg) 2018-10-21 04:30:00 Mem orial Moe Temperature Oral (F) 2018-10-21 04:30:00 97.9 F [facility] Moe Heart Rate 2018-10-21 04:30:00 Memorial Moe Respitory Rate 2018-10-21 04:30:00 Memori al [place] Systolic (mm Hg) 2018-10-21 00:45:00 Sylvester rial [place] Diastolic (mm Hg) 2018-10-21 00:45:00 Mem orial [place] Heart Rate 2018-10-21 00:45:00 Memorial Moe Respitory Rate 2018-10-21 00:45:00 Memori al Moe Temperature Oral (F) 2018-10-21 00:45:00 98.2 F [facility] [place] Heart Rate 2018-10-20 21:27:00 [facility] [place] Weight 2018-10-18 22:05:00 Memorial Moe BMI Calculated 2018-10-18 22:05:00 Memori al [place] Height 2018-10-18 22:05:00 160.02 cm Memorial Moe BMI Calculated 2018-10-16 15:16:00 Memori al Moe Weight 2018-10-16 15:16:00 Memorial Moe Height 2018-10-16 15:16:00 154.94 cm Memorial [place] Heart Rate 2018-10-16 15:16:00 Memorial Moe Systolic (mm Hg) 2018-10-16 15:16:00 Sylvester rial [place] Diastolic (mm Hg) 2018-10-16 15:16:00 Mem orial [place] Height 2018-10-10 19:32:00 154.94 cm Memorial [place] BMI Calculated 2018-10-10 19:32:00 Memori al [place] Heart Rate 2018-10-10 19:32:00 [facility] [place] Systolic (mm Hg) 2018-10-10 19:32:00 Sylvester rial [place] Diastolic (mm Hg) 2018-10-10 19:32:00 Mem orial Moe Weight 2018-10-10 19:32:00 Memorial Moe BMI Calculated 2018-09-26 16:38:00 Memori al Moe Weight 2018-09-26 16:38:00 Memorial Moe Height 2018-09-26 16:38:00 154.94 cm [facility] [place] Heart Rate 2018-09-26 16:38:00 Memorial Moe Systolic (mm Hg) 2018-09-26 16:38:00 Sylvester rial [place] Diastolic (mm Hg) 2018-09-26 16:38:00 Mem orial [place] BMI Calculated 2018-09-13 18:45:00 Memori al [place] Weight 2018-09-13 18:45:00 [facility] [place] Height 2018-09-13 18:45:00 154.94 cm Memorial Moe Heart Rate 2018-09-13 18:45:00 Memorial Moe Systolic (mm Hg) 2018-09-13 18:45:00 Sylvester rial [place] Diastolic (mm Hg) 2018-09-13 18:45:00 Mem orial Moe Height 2018-08-30 16:28:00 154.94 cm [facility] [place] Weight 2018-08-30 16:28:00 Memorial Moe BMI Calculated 2018-08-30 16:28:00 Memori al [place] Heart Rate 2018-08-30 16:28:00 [facility] [place] Systolic (mm Hg) 2018-08-30 16:28:00 Sylvester rial [place] Diastolic (mm Hg) 2018-08-30 16:28:00 [facility] orial Moe Heart Rate 2018-08-16 14:53:00 Memorial Moe Systolic (mm Hg) 2018-08-16 14:53:00 Sylvester rial [place] Diastolic (mm Hg) 2018-08-16 14:53:00 Mem orial [place] BMI Calculated 2018-08-16 14:53:00 Memori al [place] Weight 2018-08-16 14:53:00 Memorial Moe Height 2018-08-16 14:53:00 154.94 cm Memorial Moe Weight 2018-07-19 16:08:00 Memorial Moe BMI Calculated 2018-07-19 16:08:00 Memori al Moe Heart Rate 2018-07-19 16:08:00 [facility] Systolic (mm Hg) 2018-07-19 16:08:00 [facility] Diastolic (mm Hg) 2018-07-19 16:08:00 [facility] Height 2018-07-19 16:08:00 154.94 cm [facility] Heart Rate 2018-06-20 19:02:00 [facility] Systolic (mm Hg) 2018-06-20 19:02:00 [facility] Diastolic (mm Hg) 2018-06-20 19:02:00 [facility] Weight 2018-06-20 19:02:00 [facility] BMI Calculated 2018-06-20 19:02:00 [facility] Height 2018-06-20 19:02:00 154.94 cm [facility] BMI Calculated 2018-05-21 17:16:00 [facility] Weight 2018-05-21 17:16:00 [facility] Heart Rate 2018-05-21 17:16:00 [facility] Systolic (mm Hg) 2018-05-21 17:16:00 [facility] Diastolic (mm Hg) 2018-05-21 17:16:00 [facility] Height 2018-05-21 17:16:00 154.94 cm [facility] Systolic (mm Hg) 2018-04-23 22:14:00 [facility] Diastolic (mm Hg) 2018-04-23 22:14:00 [facility] Heart Rate 2018-04-23 22:14:00 [facility] Height 2018-04-23 22:14:00 154.94 cm [facility] Weight 2018-04-23 22:14:00 [facility] BMI Calculated 2018-04-23 22:14:00 [facility] Systolic (mm Hg) 2018-03-26 16:49:00 [facility] Diastolic (mm Hg) 2018-03-26 16:49:00 [facility] Height 2018-03-26 16:49:00 154.94 cm [facility] Weight 2018-03-26 16:49:00 [facility] BMI Calculated 2018-03-26 16:49:00 [facility] Heart Rate 2018-03-26 16:49:00 [facility] Weight 2018-02-13 15:07:00 [facility] Height 2018-02-13 15:07:00 154.94 cm [facility] BMI Calculated 2018-02-13 15:07:00 [facility] Heart Rate 2018-02-13 15:07:00 [facility] Systolic (mm Hg) 2018-02-13 15:07:00 [facility] Diastolic (mm Hg) 2018-02-13 15:07:00 [facility] Systolic (mm Hg) 2017-03-18 04:31:00 Sylvester rial Moe Diastolic (mm Hg) 2017-03-18 04:31:00 Mem orial Moe Respitory Rate 2017-03-18 04:31:00 [facility] Temperature Oral (F) 2017-03-18 04:31:00 98 F [facility] Heart Rate 2017-03-18 04:31:00 [facility] Temperature Oral (F) 2017-03-18 03:10:00 98.4 F [facility] Weight 2017-03-18 03:10:00 [facility] Height 2017-03-18 03:10:00 160.02 cm [facility] BMI Calculated 2017-03-18 03:10:00 [facility] Heart Rate 2017-03-18 03:10:00 [facility] Respitory Rate 2017-03-18 03:10:00 [facility] al [facility] Systolic (mm Hg) 2017-03-18 03:10:00 Sylvester rial Moe Diastolic (mm Hg) 2017-03-18 03:10:00 Mem orial Moe Procedures Procedure Date / Time Performed Performing Clinician [facility] e POCT TEST 2022-02-10 14:25:00 Bernie Cruz [facility] Vaginal delivery only 2018-10-19 12:06:00 Memori al Moe (with or without episiotomy and/or forceps); Encounters Start End Encounter Admission Attending Care Care Encounter Source Date/Time Date/Time Type Type Clinicians Facility Department ID 2018-09-19 Inpatient MHFB FB [id number] [facility] B 11:47:12 2022-02-10 2022-02-10 Nurse Visit, Ang-Rmchp Nurse [facility] [id number] [facility] 08:00:00 08:31:50 Visit Bernie Cruz AUTOMATION QTP TESTER [id number] 10 ariel [facility] [id number] Kyrie as MATERNAL [id number] Med ical & CHILD [address] [place] [address] 2022-02-10 2022-02-10 Outpatient Kayla CRUZ [facility] [id number] [facility] 08:00:00 08:00:00 BERNIE steele [facility] 2020-03-19 2020-03-19 Emergency nullFlavo [facility] [id number] Memoria 03:16:31 04:23:00 kayla Rosa [address] [place] [address] 2020-03-19 2020-03-19 Emergency nullFlavo [facility] [id number] Memoria 03:16:31 04:23:00 kayla Rosa [address] [place] [address] 2020-03-18 2020-03-18 Outpatient CIRILO Marcus [facility] [id number] 21:16:31 22:23:00 Jhoan Whitten 2020-03-18 2020-03-18 Emergency E DARLEEN MARCUS MED [id number] [facility] 21:16:00 22:23:00 JHOAN 2018-11-12 2018-11-13 Outpatient nullFlavo [facility] coating engineer 3 [id number] Memoria 15:45:00 04:59:59 r Gibson 25 [facility] 2018-11-12 2018-11-13 Outpatient nullFlavo [facility] coating engineer 3 [id number] Memoria 15:45:00 04:59:59 r Gibson 25 [facility] 2018-11-12 2018-11-12 Outpatient LEONIDES Kat [facility] [id number] 10:45:00 23:59:59 Arabella Denise 2018-11-12 2018-11-12 Outpatient MONICAIE MONICAIE [id number] Memoria 10:45:00 10:45:00 25 nalini Moe 2018-10-18 2018-10-21 Inpatient nullFlavo [facility] [id number] Memoria 21:55:36 23:10:00 r Moe 11 l Gibson Tabitha 2018-10-18 2018-10-21 Inpatient nullFlavo [facility] [id number] Memoria 21:55:36 23:10:00 r Moe 11 l Gibson Tabitha 2018-10-18 2018-10-21 Outpatient [place], [facility] [id number] 16:55:36 18:10:00 Arabellanuria Denise 2018-10-18 2018-10-18 Inpatient E MHFB [facility] [id number] [facility] 17:40:00 16:55:00 2018-10-16 2018-10-17 OP Integration Consultant nullFlavo [facility] coating engineer 38 [id number] Memoria 14:45:00 04:59:59 Clinic r Gibson 24 l Meo 2018-10-16 2018-10-17 OP Integration Consultant nullFlavo [facility] coating engineer 38 [id number] Memoria 14:45:00 04:59:59 Clinic r Gibson 24 l Bledsoe 2018-10-16 2018-10-16 Outpatient [facility] [id number] 09:45:00 23:59:59 Arabella 24 [facility] 2018-10-16 2018-10-16 Outpatient MHIE MONICAIE [id number] Memoria 09:45:00 09:45:00 24 nalini Rosa 2018-10-10 2018-10-11 OP Integration Consultant nullFlavo [facility] coating engineer 38 [id number] Memoria 18:45:00 04:59:59 Clinic r Gibson 23 l Moe 2018-10-10 2018-10-11 OP Integration Consultant nullFlavo [facility] coating engineer 38 [id number] Memoria 18:45:00 04:59:59 Clinic r Gibson 23 nalini Rosa 2018-10-10 2018-10-10 Outpatient [facility] [id number] 13:45:00 23:59:59 Arabella 23 [facility] 2018-10-10 2018-10-10 Outpatient MHIE IE [id number] Memoria 13:45:00 13:45:00 23 nalini Rosa 2018-09-26 2018-09-27 OP Integration Consultant nullFlavo MG coating engineer 38 [id number] Memoria 18:45:00 04:59:59 Clinic r Gibson 22 nalini Moe 2018-09-26 2018-09-27 OP Integration Consultant nullFlavo [facility] coating engineer 38 [id number] Memoria 18:45:00 04:59:59 Clinic r Gibson 22 nalini Rosa 2018-09-26 2018-09-27 Outpatient nullFlavo MG coating engineer 3 [id number] Memoria 16:00:00 04:59:59 r Gibson 21 nalini Rosa 2018-09-26 2018-09-27 Outpatient nullFlavo MG coating engineer 3 [id number] Memoria 16:00:00 04:59:59 r Gibson 21 nalini Rosa 2018-09-26 2018-09-26 Outpatient [place] [facility] [id number] 13:45:00 23:59:59 Arabella Christian Howie 2018-09-26 2018-09-26 Outpatient VISIT, [facility] [id number] 11:00:00 23:59:59 NURSE STMO 21 [facility] 2018-09-26 2018-09-26 Outpatient MHIE MONICAIE [id number] Memoria 13:45:00 13:45:00 22 nalini Rosa 2018-09-26 2018-09-26 Outpatient SHEREE BENTLEY [id number] Memoria 11:00:00 11:00:00 21 nalini Rosa 2018-09-13 2018-09-14 OP Integration Consultant nullFlavo [facility] coating engineer 38 [id number] Memoria 18:30:00 04:59:59 Clinic r Gibson 20 nalini Rosa 2018-09-13 2018-09-14 OP Integration Consultant nullFlavo [facility] coating engineer 38 [id number] Memoria 18:30:00 04:59:59 Clinic r Gibson 20 nalini Rosa 2018-09-13 2018-09-13 Outpatient [place], [facility] [id number] 13:30:00 23:59:59 Arabella 20 Howie 2018-09-13 2018-09-13 Outpatient MHIE MONICAIE [id number] Memoria 13:30:00 13:30:00 20 nalini Rosa 2018-08-30 2018-08-31 OP Integration Consultant nullFlavo [facility] coating engineer 38 [id number] Memoria 16:00:00 04:59:59 Clinic r Gibson 19 nalini Moe 2018-08-30 2018-08-31 OP Integration Consultant nullFlavo [facility] coating engineer 38 [id number] Memoria 16:00:00 04:59:59 Clinic r Gibson 19 nalini Moe 2018-08-30 2018-08-30 Outpatient [facility] [id number] 11:00:00 23:59:59 Arabella 19 Howie 2018-08-30 2018-08-30 Outpatient [facility] [id number] Memoria 11:00:00 11:00:00 19 nalini Bledsoe 2018-08-16 2018 OP Integration Consultant nullFlavo [facility] coating engineer 38 [id number] Memoria 14:45:00 04:59:59 Clinic r Gibson 18 nalini Bledsoe 2018-08-16 2018 OP Integration Consultant nullFlavo [facility] coating engineer 38 [id number] Memoria 14:45:00 04:59:59 Clinic r Gibson 18 nalini Bledsoe 2018-08-16 2018-08-16 Outpatient [facility] [id number] 09:45:00 23:59:59 Arabella 18 [facility] 2018-08-16 2018-08-16 Outpatient [facility] [id number] Memoria 09:45:00 09:45:00 18 nalini Rosa 2018-07-19 2018-07-20 OP Integration Consultant nullFlavo [facility] coating engineer 38 [id number] Memoria 15:30:00 04:59:59 Clinic r Gibson 17 nalini Bledsoe 2018-07-19 2018-07-20 OP Integration Consultant nullFlavo [facility] coating engineer 38 [id number] Memoria 15:30:00 04:59:59 Clinic r Gibson 17 nalini Moe 2018-07-19 2018-07-19 Outpatient [facility] [id number] 10:30:00 23:59:59 [facility] 2018-07-19 Outpatient [facility] [id number] 10:30:00 23:59:59 Arabella Denise 2018-07-19 2018-07-[address] [facility] [id number] 10:30:00 23:59:59 Arabella Denise 2018-07-19 2018-07-[address] [facility] [id number] 10:30:00 23:59:59 Arabella Denise 2018-07-19 2018-07-19 Outpatient SHEREE ANDERSONIE [id number] Memoria 10:30:00 10:30:00 17 nalini Bledsoe 2018-06-20 2018-06-21 OP Integration Consultant nullFlavo [facility] coating engineer 38 [id number] Memoria 18:30:00 04:59:59 Clinic r Gibson 15 nalini Bledsoe 2018-06-20 2018-06-21 OP Integration Consultant nullFlavo [facility] coating engineer 38 [id number] Memoria 18:30:00 04:59:59 Clinic r Gibson 15 nalini Bledsoe 2018-06-20 2018-06-21 Outpatient nullFlavo [facility] coating engineer 3 [id number] Memoria 18:00:00 04:59:59 r Gibson 16 nalini Moe 2018-06-20 2018-06-21 Outpatient nullFlavo [facility] coating engineer 3 [id number] Memoria 18:00:00 04:59:59 r Gibson 16 nalini Bledsoe 2018-06-20 2018-06-[address] [facility] [id number] 13:30:00 23:59:59 Arabella Denise 2018-06-20 2018-06-20 Outpatient [place] [facility] [id number] 13:00:00 23:59:59 Arabella 16 Howie 2018-06-20 2018-06-20 Outpatient MHIE MONICAIE [id number] Memoria 13:30:00 13:30:00 15 nalini Rosa 2018-06-20 2018-06-20 Outpatient MHIE IE [id number] Memoria 13:00:00 13:00:00 16 nalini Rosa 2018-05-21 2018-05-22 OP Integration Consultant nullFlavo [facility] coating engineer 38 [id number] Memoria 16:30:00 05:59:59 Clinic r Gibson 14 nalini Rosa 2018-05-21 2018-05-22 OP Integration Consultant nullFlavo [facility] coating engineer 38 [id number] Memoria 16:30:00 05:59:59 Clinic r Gibson 14 nalini Moe 2018-05-21 2018-05-21 Outpatient [place] [facility] [id number] 10:30:00 23:59:59 Arabella Prakash Howie 2018-05-21 2018-05-21 Outpatient JANINE [facility] [id number] Memoria 10:30:00 10:30:00 14 nalini Rosa 2018-05-11 2018-05-11 Ambulatory nullFlavo [facility] coating engineer 3 [id number] Memoria 15:15:00 15:15:00 Pre-Reg r Gibson 10 nalini Rosa 2018-05-11 2018-05-11 Ambulatory nullFlavo [facility] coating engineer 3 [id number] Memoria 15:15:00 15:15:00 Pre-Reg r Gibson 10 nalini Rosa 2018-05-11 2018-05-11 Outpatient [facility] [id number] Memoria 09:15:00 09:15:00 10 nalini Rosa 2018-05-11 2018-05-11 Outpatient [place] [facility] [id number] 09:15:00 09:15:00 Arabella Lopez Howie 2018-04-23 2018-04-24 OP Integration Consultant nullFlavo [facility] coating engineer 38 [id number] Memoria 21:45:00 05:59:59 Clinic r Gibson 13 nalini Rosa 2018-04-23 2018-04-24 OP Integration Consultant nullFlavo [facility] coating engineer 38 [id number] Memoria 21:45:00 05:59:59 Clinic r Gibson 13 nalini Rosa 2018-04-23 2018-04-23 Outpatient [place] [facility] [id number] 15:45:00 23:59:59 Arabella Nichole Denise 2018-04-23 2018-04-23 Outpatient [place] [facility] [id number] 15:45:00 23:59:59 Arabella Denise 2018-04-23 2018-04-23 Outpatient JANINE [facility] [id number] Memoria 15:45:00 15:45:00 13 anlini Rosa 2018-03-26 2018-03-27 Outpatient nullFlavo MG coating engineer 3 [id number] Memoria 16:45:00 05:59:59 r Gibson 12 nalini Bledsoe 2018-03-26 2018-03-27 Outpatient nullFlavo MG coating engineer 3 [id number] Memoria 16:45:00 05:59:59 r Gibson 12 [facility] 2018-03-26 2018-03-27 Outpatient nullFlavo MG coating engineer 3 [id number] Memoria 16:00:00 05:59:59 r Gibson 11 nalini Moe 2018-03-26 2018-03-27 Outpatient nullFlavo MG coating engineer 3 [id number] Memoria 16:00:00 05:59:59 r Gibson 11 [facility] 2018-03-26 2018-03-26 [facility] [id number] 10:45:00 23:59:59 Arabella 12 [facility] 2018-03-26 2018-03-26 Outpatient [facility] [id number] 10:00:00 23:59:59 Arabella 11 [facility] 2018-03-26 2018-03-26 Outpatient MHIE MHIE [id number] Memoria 10:45:00 10:45:00 12 [facility] 2018-03-26 2018-03-26 Outpatient MHIE MHIE [id number] Memoria 10:00:00 10:00:00 11 nalini Moe 2018-02-26 2018-02-28 Phone nullFlavo [facility] coating engineer [id number] Memoria 14:40:00 05:59:59 Message r Gibson 00 nalini Bledsoe 2018-02-26 2018-02-28 Phone nullFlavo [facility] coating engineer [id number] Memoria 14:40:00 05:59:59 Message r Gibson 00 nalini Bledsoe 2018-02-26 2018-02-27 Outpatient [facility] [id number] 08:40:00 23:59:59 2018-02-13 2018-02-14 Outpatient nullFlavo MG coating engineer 3 [id number] Memoria 15:00:00 05:59:59 r Gibson 09 [facility] 2018-02-13 2018-02-14 Outpatient nullFlavo MG coating engineer 3 [id number] Memoria 15:00:00 05:59:59 r Gibson 09 nalini Moe 2018-02-13 2018-02-13 Outpatient [place] [facility] [id number] 09:00:00 23:59:59 Arabella Denise 2018-02-13 2018-02-13 Outpatient MHIE MHIE [id number] Memoria 09:00:00 09:00:00 09 nalini Rosa 2017-03-18 2017-03-18 Emergency nullFlavo [facility] [id number] Memoria 03:06:00 04:30:00 r Moe 03 l Gibson Tabitha nn 2017-03-18 2017-03-18 Emergency nullFlavo [facility] [id number] Memoria 03:06:00 04:30:00 r Moe 03 l Gibson Tabitha nn 2017-03-17 2017-03-17 Outpatient Marvel, MHSL MHSL [id number] 21:06:00 22:30:00 Anastasiya 03 Lashanda 2016-09-19 2016-09-19 Outpatient MHIE MHIE [id number] Memoria 14:00:00 14:00:00 08 nalini Rosa 2016-09-19 2016-09-19 Outpatient MHIE MHIE [id number] Memoria 14:00:00 14:00:00 08 nalini Rosa 2016-09-16 2016-09-16 Outpatient MHIE MHIE [id number] Memoria 09:15:00 09:15:00 07 nalini Rosa 2016-09-16 2016-09-16 Outpatient MHIE MHIE [id number] Memoria 09:15:00 09:15:00 07 nalini Rosa 2016-05-27 2016-05-27 Outpatient MHIE MHIE [id number] Memoria 13:45:00 13:45:00 06 nalini Rosa 2016-05-27 2016-05-27 Outpatient MHIE MHIE [id number] Memoria 13:45:00 13:45:00 06 nalini Rosa 2016-02-15 2016-02-15 Outpatient MHIE MHIE [id number] Memoria 11:30:00 11:30:00 05 nalini Rosa 2016-02-15 2016-02-15 Outpatient MHIE MHIE [id number] Memoria 11:30:00 11:30:00 05 nalini Moe 2015-10-26 2015-10-26 Outpatient MHIE MHIE [id number] Memoria 11:30:00 11:30:00 04 nalini Moe 2015-10-26 2015-10-26 Outpatient MHIE MHIE [id number] Memoria 11:30:00 11:30:00 04 nalini Rosa 2015-08-07 2015-08-07 Outpatient MHIE MHIE [id number] Memoria 13:30:00 13:30:00 03 nalini Moe 2015-08-07 2015-08-07 Outpatient MHIE MHIE [id number] Memoria 13:30:00 13:30:00 03 nalini Rosa 2014-12-10 2014-12-10 Outpatient MHIE MHIE [id number] Memoria 15:00:00 15:00:00 02 nalini Rosa 2014-12-10 2014-12-10 Outpatient MHIE MHIE [id number] Memoria 15:00:00 15:00:00 02 nalini Rosa 2014-11-07 2014-11-07 Outpatient MHIE MHIE [id number] Memoria 15:00:00 15:00:00 01 nalini Rosa 2014-11-07 2014-11-07 Outpatient MHIE MHIE [id number] Memoria 15:00:00 15:00:00 01 nalini Rosa 2014-11-07 2014-11-07 Outpatient MHIE MHIE [id number] Memoria 14:30:00 14:30:00 00 nalini Rosa 2014-11-07 2014-11-07 Outpatient MHIE MHIE [id number] Memoria 14:30:00 14:30:00 00 nalini Rosa [...] development and interpretation of all internal controls [facility] [id number] 04:44:25 Test Item Value Reference Range Interpretation Comments GLUCOSE (test code = 87 MG/DL 70-99 2216) BUN (test code = 9 MG/DL 6-20 2207) CREATININE (test 0.56 MG/DL 0.60-1.30 L EFFECTIVE code = 2214) 03/08/2021, [facility] HAS IMPLEMENTED THE NKF-ASN RECOMME NDED KD-EPI EGF R REFIT CALCULATI ON THAT DOES NOT INCLUDE A COEFFICIENT FOR RACE. FOR MORE INFORMATION, SE E ANNOUNCEMENT [email or web address] .LeanKit/EGFR_CALC eGFR (2020 CKD-EPI) 124 >60 (test code = 34900) ML/MIN/1.73 CALC BUN/CREAT (test 16 RATIO 6-28 code = 2235) SODIUM (test code = 141 MEQ/L 640-312 5206) POTASSIUM (test code 4.5 MEQ/L 3.5-5.4 = 222) CHLORIDE (test code 105 MEQ/L 95-107 = 221) CARBON DIOXIDE (test 27 MEQ/L 19-31 code = 2206) CALCIUM (test code = 9.4 MG/DL 8.5-10.5 2208) PROTEIN, TOTAL (test 7.2 G/DL 6.1-8.3 code = 2229) ALBUMIN (test code = 4.4 G/DL 3.5-5.2 2200) CALC GLOBULIN (test 2.8 G/DL 1.9-3.7 code = 2240) CALC A/G RATIO (test 1.6 RATIO 1.0-2.6 code = 2234) BILIRUBIN, TOTAL 0.2 MG/DL See_Comment [Automated message] (test code = 2207) The syste m which generated this result transmit luana reference range : <=1.2. The refe rence range was not u sed to interpret th is result as normal/abnormal . ALKALINE PHOSPHATASE 89 U/L 40-114 (test code = 2204) AST (test code = 28 U/L 9-40 2217) ALT (test code = 28 U/L 5-40 2218) LIPID [id number] 04:44:25 Test Item Value Reference Range Interpretation [...] MOREINFORMATION , SEE CLIENT ANNOUNCE MENT AT [email or web address] /CalcLDL-C RISK RATIO LDL/HDL 2.31 RATIO <3.22 UNLESS O THERWISE (test code = 2238) INDICATED , ALL TESTING PERFORMED [facility] PATHOLOGY [facility], [address] DIRECTOR: DUNCAN HUANG M.D. CLIA NUMBER [id number] CAP ACCREDITATION N O. [id number] TSH, THIRD [id number] 04:29:28 Test Item Value Reference Range Interpretation Comments TSH, THIRD GENERATION (test code 1.430 UIU/ML 0.400-4.100 = 2821) HEMOGLOBIN [id number] 03:59:27 Test Item Value Reference Range Interpretation Comments HEMOGLOBIN A1c (test code = 65314) 5.3 % 4.2-5.6 CBC W/AUTO DIFF WITH [id number] 03:18:31 Test Item Value Reference Range Interpretation [...] LL BE ELIMINATED REDUNDANT TOABS OLUTE COUNTS.SEE [email or web address] /chante l_CBC_reporting _upda te LYMPHOCYTES (test 37.7 % code = 1010) MONOCYTES (test code 7.1 % = 1011) EOSINOPHILS (test 4.9 % code = 1012) BASOPHILS (test code 0.6 % = 1013) IMMATURE GRANYLOCYTES 0.2 % (test code = 1036) NUCLEATED RBCS (test 0.0 /100 See_Comment [Autom ated message] code = 1065) WBC'S The system [employer] generated this result transmit luana reference range [...] RBCS 0.00 K/UL 0.00-0.11 (test code = 29688) [id number] 09:15:00 Test Item Value Reference Range Interpretation Comments Hct (test code = Hct) 31.6 36.0-48.0 [id number] 09:15:00 Test Item Value Reference Range Interpretation Comments Hgb (test code = Hgb) 10.8 12.0-16.0 [facility] [id number] 09:15:00 Test Item Value Reference Range Interpretation Comments Hct (test code = Hct) 31.6 36.0-48.0 [facility] [id number] 09:15:00 Test Item Value Reference Range Interpretation Comments Hgb (test code = Hgb) 10.8 12.0-16.0 [facility] [id number] 22:51:00 Test Item Value Reference Range Interpretation Comments HIV. (test code = Negative *NA*(10/18/18 HIV.) 5:51 PM) [facility] pickrset [id number] 22:51:00 Test Item Value Reference Range Interpretation Comments Antibody Scrn (test Positive 2(10/18/18 code = Antibody Scrn) 5:51 PM) [facility] pickrset [id number] 22:51:00 Test Item Value Reference Range Interpretation Comments ABO/Rh (test code = ABO/Rh) O NEG [facility] pickrset [id number] 22:51:00 Test Item Value Reference Range Interpretation Comments AB Int (test code = AB Int) Rhig Anti-D [facility] [id number] 22:51:00 Test Item Value Reference Range Interpretation Comments WBC (test code = WBC) 9.8 3.7-10.4 [facility] pickrset [id number] 22:51:00 Test Item Value Reference Range Interpretation Comments Antibody Scrn (test Positive 2(10/18/18 code = Antibody Scrn) 5:51 PM) [facility] pickrset [id number] 22:51:00 Test Item Value Reference Range Interpretation Comments ABO/Rh (test code = ABO/Rh) O NEG [facility] pickrset [id number] 22:51:00 Test Item Value Reference Range Interpretation Comments AB Int (test code = AB Int) Rhig Anti-D [facility] [id number] 22:51:00 Test Item Value Reference Range Interpretation Comments WBC (test code = WBC) 9.8 3.7-10.4 [id number] 22:51:00 Test Item Value Reference Range Interpretation Comments MCV (test code = MCV) 94.4 80.0-98.0 [facility] [id number] 22:51:00 Test Item Value Reference Range Interpretation Comments Hct (test code = Hct) 36.0 36.0-48.0 [facility] [id number] 22:51:00 Test Item Value Reference Range Interpretation Comments Hgb (test code = Hgb) 12.3 12.0-16.0 [facility] C[id number] 22:51:00 Test Item Value Reference Range Interpretation Comments RBC (test code = RBC) 3.81 4.20-5.40 [facility] [id number] 22:51:00 Test Item Value Reference Range Interpretation Comments MCHC (test code = MCHC) 34.1 32.0-36.0 [facility] [id number] 22:51:00 Test Item Value Reference Range Interpretation Comments MCH (test code = MCH) 32.2 pg 27.0-31.0 [facility] [id number] 22:51:00 Test Item Value Reference Range Interpretation Comments MPV (test code = MPV) 9.9 7.4-10.4 [facility] [id number] 22:51:00 Test Item Value Reference Range Interpretation Comments Platelet (test code = Platelet) 261 133-450 [facility] [id number] 22:51:00 Test Item Value Reference Range Interpretation Comments RDW (test code = RDW) 12.8 11.5-14.5 [facility] [id number] 22:51:00 Test Item Value Reference Range Interpretation Comments Monocytes # (test code 0.7 See_Comment [Aut omated message] The = Monocytes #) system which generated this result tra nsmitted reference range : <=0.8. The reference r santos was not used to int erpret this result as normal/abnormal . [facility] [id number] 22:51:00 Test Item Value Reference Range Interpretation Comments Lymphocytes # (test code = Lymphocytes 1.7 1.0-5.5 #) [facility] [id number] 22:51:00 Test Item Value Reference Range Interpretation Comments Neutrophils # (test code = Neutrophils 7.4 1.5-8.1 #) [facility] [id number] 22:51:00 Test Item Value Reference Range Interpretation Comments Basophils (test code = 0.3 See_Comment [Aut omated message] The Basophils) system which ge nerated this result tra nsmitted reference range : <=1.0. The reference r santos was not used to int erpret this result as normal/abnormal . [facility] [id number] 22:51:00 Test Item Value Reference Range Interpretation Comments Eosinophils (test code = 0.2 See_Comment [A utomated message] The Eosinophils) system which ge nerated this result tra nsmitted reference range : <=4.0. The reference r santos was not used to int erpret this result as normal/abnormal . [facility] [id number] 22:51:00 Test Item Value Reference Range Interpretation Comments Monocytes (test code = Monocytes) 6.6 2.0-12.0 [facility] [id number] 22:51:00 Test Item Value Reference Range Interpretation Comments Segs (test code = Segs) 75.2 45.0-75.0 [facility] [id number] 22:51:00 Test Item Value Reference Range Interpretation Comments Lymphocytes (test code = Lymphocytes) 17.7 20.0-40.0 [id number] 22:51:00 Test Item Value Reference Range Interpretation Comments Hep Bs Ag (test code Negative *NA*(10/18/18 = Hep Bs Ag) 5:51 PM) [id number] 22:51:00 Test Item Value Reference Range Interpretation Comments Treponemal Ab (test code Non-Reactive = Treponemal Ab) *NA*(10/18/18 5:51 PM) [id number] 22:51:00 Test Item Value Reference Range Interpretation Comments HIV. (test code = Negative *NA*(10/18/18 HIV.) 5:51 PM) [facility] [id number] 22:51:00 Test Item Value Reference Range Interpretation Comments MCV (test code = MCV) 94.4 80.0-98.0 [facility] Cent[id number] 22:51:00 Test Item Value Reference Range Interpretation Comments Hct (test code = Hct) 36.0 36.0-48.0 [facility] CenterHhtphghGCZTVTDHAQ2255-51-20 22:51:00 Test Item Value Reference Range Interpretation Comments Hgb (test code = Hgb) 12.3 12.0-16.0 [facility] Cent[id number] 22:51:00 Test Item Value Reference Range Interpretation Comments RBC (test code = RBC) 3.81 4.20-5.40 [facility] Cent[id number] 22:51:00 Test Item Value Reference Range Interpretation Comments MCHC (test code = MCHC) 34.1 32.0-36.0 [facility] [id number] 22:51:00 Test Item Value Reference Range Interpretation Comments MCH (test code = MCH) 32.2 pg 27.0-31.0 [facility] [id number] 22:51:00 Test Item Value Reference Range Interpretation Comments MPV (test code = MPV) 9.9 7.4-10.4 [facility] Cent[id number] 22:51:00 Test Item Value Reference Range Interpretation Comments Platelet (test code = Platelet) 261 133-450 [facility] [id number] 22:51:00 Test Item Value Reference Range Interpretation Comments RDW (test code = RDW) 12.8 11.5-14.5 [facility] [id number] 22:51:00 Test Item Value Reference Range Interpretation Comments Monocytes # (test code 0.7 See_Comment [Aut omated message] The = Monocytes #) system which generated this result tra nsmitted reference range : <=0.8. The reference r santos was not used to int erpret this result as normal/abnormal . [facility] [id number] 22:51:00 Test Item Value Reference Range Interpretation Comments Lymphocytes # (test code = Lymphocytes 1.7 1.0-5.5 #) [facility] [id number] 22:51:00 Test Item Value Reference Range Interpretation Comments Neutrophils # (test code = Neutrophils 7.4 1.5-8.1 #) [facility] [id number] 22:51:00 Test Item Value Reference Range Interpretation Comments Basophils (test code = 0.3 See_Comment [Aut omated message] The Basophils) system which ge nerated this result tra nsmitted reference range : <=1.0. The reference r santos was not used to int erpret this result as normal/abnormal . [facility] [id number] 22:51:00 Test Item Value Reference Range Interpretation Comments Eosinophils (test code = 0.2 See_Comment [A utomated message] The Eosinophils) system which ge nerated this result tra nsmitted reference range : <=4.0. The reference r santos was not used to int erpret this result as normal/abnormal . [facility] [id number] 22:51:00 Test Item Value Reference Range Interpretation Comments Monocytes (test code = Monocytes) 6.6 2.0-12.0 [facility] [id number] 22:51:00 Test Item Value Reference Range Interpretation Comments Segs (test code = Segs) 75.2 45.0-75.0 [facility] [id number] 22:51:00 Test Item Value Reference Range Interpretation Comments Lymphocytes (test code = Lymphocytes) 17.7 20.0-40.0 [facility] [id number] 22:51:00 Test Item Value Reference Range Interpretation Comments Hep Bs Ag (test code Negative *NA*(10/18/18 = Hep Bs Ag) 5:51 PM) [facility] [id number] 22:51:00 Test Item Value Reference Range Interpretation Comments Treponemal Ab (test code Non-Reactive = Treponemal Ab) *NA*(10/18/18 5:51 PM) [place] [id number] 03:18:00 Test Item Value Reference Range Interpretation Comments Grp A Strep Scr (test Negative (03/17/17 9:18 code = Grp A Strep PM) Scr) [facility] [id number] 03:18:00 Test Item Value Reference Range Interpretation Comments Influ A (test code = Negative (03/17/17 9:18 Influ A) PM) [facility] [id number] 03:18:00 Test Item Value Reference Range Interpretation Comments Influ B (test code = Negative (03/17/17 9:18 Influ B) PM) [place] [id number] 03:18:00 Test Item Value Reference Range Interpretation Comments Grp A Strep Scr (test Negative (03/17/17 9:18 code = Grp A Strep PM) Scr) [facility] [id number] 03:18:00 Test Item Value Reference Range Interpretation Comments Influ A (test code = Negative (03/17/17 9:18 Influ A) PM) [facility] [id number] 03:18:00 Test Item Value Reference Range Interpretation Comments Influ B (test code = Negative (03/17/17 9:18 Influ B) PM) [facility] *WW*2016-10-11 10:44:00 Test Item Value Reference Range Interpretation Comments TROPONIN I (test code = A84) <0.015 ng/mL 0.000-0.045 CKMB (test code = A49) <1.0 ng/mL <=3.6 CPK (test code = 32A) 71 IU/L 26-192 COMPREHENSIVE METABOLIC YU *WW*2016-10-11 10:41:00 Test Item Value Reference Range Interpretation [...] 31A) 21 IU/L <=78 CBC (INCLUDES AUTOMATED DIFFERENTIAL)*[id number] 10:21:00 Test Item Value Reference Range Interpretation [...] NORMAL WRBCMOR) XR CHEST 1 VIEW PORTABLE *WW*2016-10-11 10:13:23Portable AP chest, 1 viewLocation Code: [id number] HISTORY: CPCOMPARISON: 12/19/11COMMENT: The lungs are clear and well inflated. The costophrenic angles are sharp. Thecardiomediastinal silhouette is unremarkable. The bones are intact.IMPRESSION: No acute abnormality
--- NOTE | 2022-03-16 20:45 | RAD REPORT ---
EXAM DESCRIPTION: US - 1St Trimest Single 1St Fetus - 03/16/2022 8:27 pm CLINICAL HISTORY: with vaginal bleeding COMPARISON: March 14, 2022 FINDINGS: The uterus measures 10 x 5 x 6 centimeters. The endometrial stripe measures 7 millimeters . A 4 millimeter anechoic structure is present within the endometrium. The large gestational sac seen on the prior exam is no longer present. The left ovary is normal in size and echotexture. Right ovary not seen secondary to overlying bowel g as The right and left adnexa are unremarkable No significant free fluid is seen. IMPRESSION: An has occurred since the prior exam. Endometrial stripe is normal thickness
[2022-03-16 21:19] LABS: Urine Blood 3+ (Negative); Urine Glucose Negative (Negative); Urine Protein Negative (Negative); Urine Specific Gravity >=1.030 (1.005-1.030); Urine pH 5.5 (5.0-7.0)
[2022-03-16 21:23] LABS: Absolute Lymphocytes (CBC) 1.8 K/uL (0.7-4.9); Hematocrit 33.4 % (36.0-45.0); Lymphocytes % 36.7 % (15.3-44.8); MCV 93.4 fL (80-100); MPV 9.1 fL (7.6-11.3); RBC Red Blood Cell Count 3.58 M/uL (3.86-4.86)
[2022-03-16 21:49] LABS: Albumin 3.5 g/dL (3.4-5.0); Bilirubin Total 0.2 mg/dL (0.2-1.0); Potassium 3.3 mmol/L (3.5-5.1); Protein, Total 7.1 g/dL (6.4-8.2)
[2022-03-16 22:08] LABS: Urine Bacteria None Seen /HPF (<20); Urine Mucus Slight /HPF (None Seen); Urine RBC 21-50 /HPF (None Seen)
--- NOTE | 2022-03-16 22:16 | EDPHYS ---
Physician Documentation [facility] Name: Lizz Malagon Age: 36 yrs Sex: Female : 1985 Arrival Date: 03/16/2022 Time: 19:08 Bed 13 Private MD: ED Physician Katelyn Gandhi HPI: 03/16 20:52 This 36 yrs old Female presents to ER via Ambulatory with complaints of sd2 Vaginal Bleeding, + Preg <12wks. 20:52 36 yo F presents with CC of "I'm pretty sure I had a miscarriage." Reports seen sd2 here 2 nights ago for abdominal cramping with negative workup at that time and told to return for repeat hCG levels. States that yesterday she had worse cramping with heavy bleeding, tissue and clots. 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 - Social history:: Smoking status: Patient denies any tobacco usage or history of. ROS: 21:02 Constitutional: Negative for fever, chills, and weight loss, Eyes: Negative for injury, sd2 pain, redness, and discharge, Cardiovascular: Negative for chest pain, palpitations, and edema, Respiratory: Negative for shortness of breath, cough, wheezing. Abdomen/GI: Negative for abdominal pain, nausea, vomiting, diarrhea. : Negative for dysuria, urinary frequency, hesitancy, urgency and hematuria. Positive for vaginal bleeding MS/Extremity: Negative for injury and deformity, Skin: Negative for injury, rash, and discoloration, Neuro: Negative for headache, numbness and tingling. Exam: 21:02 Constitutional: This is a well developed, well nourished patient who is awake, alert, sd2 and in no acute distress. Head/Face: Normocephalic, atraumatic. Eyes: EOMI, normal conjunctiva bilaterally Chest/axilla: Normal chest wall appearance and motion. Nontender with no deformity. Cardiovascular: Regular rate and rhythm with a normal S1 and S2. No gallops, murmurs, or rubs. 2+ distal pulses. Respiratory: Lungs have equal breath sounds bilaterally, clear to auscultation and percussion. No rales, rhonchi or wheezes noted. No increased work of breathing, no retractions or nasal flaring. Abdomen/GI: Soft, non-tender, with normal bowel sounds. No guarding or rebound. No evidence of tenderness throughout. Skin: Warm, dry with normal turgor. Normal color with no rashes, no lesions, and no evidence of cellulitis. MS/ Extremity: Pulses equal, no cyanosis. Neurovascular intact. Full, normal range of motion. Ambulatory without difficulty. Psych: Awake, alert, with orientation to person, place and time. Behavior, mood, and affect are within normal limits. Vital Signs: 19:53 BP 104 / 74; Pulse 75; Resp 18; Temp 98.6; Pulse Ox 100% ; Weight 65.77 kg; Height 5 tw5 ft. 2 in. (157.48 cm); Pain 0/10; 22:32 BP 110 / 72; Pulse 72; Resp 19; Temp 98.5; Pulse Ox 100% on R/A; Pain 0/10; ke1 19:53 Body Mass Index 26.52 (65.77 kg, 157.48 cm) tw5 MDM: 20:46 Patient medically screened. sd2 21:02 Differential diagnosis: incomplete , threatened , anemia, ectopic sd2 among others. Data reviewed: vital signs, nurses notes. 22:12 Data reviewed: lab test result(s), radiologic studies. Counseling: I had a detailed sd2 discussion with the patient and/or guardian regarding: the historical points, exam findings, and any diagnostic results supporting the discharge/admit diagnosis, lab results, radiology results, to return to the emergency department if symptoms worsen or persist or if there are any questions or concerns that arise at home. Medical screen evaluation completed. EMTALA emergency medical condition absent. ED course: Labs and imaging reviewed. Consistent with miscarriage. hCG with significant downtrend. NO gestational sac seen on US. Suspect incomplete . Pt currently with controlled bleeding, stable VS and no pain. Pt to follow up with OBGYN for repeat hCG levels. She verbalizes understanding of discharge plan and strict return precautions. . 03/16 20:00 Order name: CBC with Diff; Complete Time: 21:39 sd2 03/16 20:00 Order name: CMP; Complete Time: 22:07 sd2 03/16 20:00 Order name: HCG-Quantitative; Complete Time: 22:07 sd2 03/16 20:00 Order name: Urine Microscopic Only sd2 03/16 20:00 Order name: Type And Screen sd2 03/16 21:19 Order name: Urine Dipstick-Ancillary; Complete Time: 21:39 EDMS 03/16 20:00 Order name: Urine Dipstick-Ancillary (obtain specimen); Complete Time: 21:19 sd2 03/16 20:00 Order name: 1st Trimest Single 1st Fetus; Complete Time: 20:51 sd2 03/16 21:40 Order name: Urine --Ancillary (enter results) wm 03/16 22:14 Order name: Antibody Identification EDMS Administered Medications: No medications were administered Disposition Summary: 03/16/22 22:15 Discharge Ordered Location: Home sd2 Problem: an ongoing problem sd2 Symptoms: have improved sd2 Condition: Stable sd2 Diagnosis - Incomplete spontaneous without complication sd2 Followup: sd2 - With: Edson Kong MD - When: 2 - 3 days - Reason: Recheck today's complaints, Continuance of care Discharge Instructions: - Discharge Summary Sheet sd2 - Incomplete Miscarriage sd2 Forms: - Medication Reconciliation Form sd2 - Thank You Letter sd2 - Antibiotic Education sd2 - Prescription Opioid Use sd2 Signatures: Dispatcher [employer] EDMaty Real tw5 Katelyn Gandhi MD MD sd2 Corrections: (The following items were deleted from the chart) 21:03 20:52 36 yo F presents with CC of "I'm pretty sure I had a miscarriage." Reports sd2 seen here 2 nights ago for abdominal cramping with negative workup at that time and told to return for repeat hCG levels. States that yesterday she had worse cramping with heavy bleeding, tissue and clots. . sd2
--- NOTE | 2022-03-16 22:16 | ER ---
Nurse's Notes [facility] Name: Lizz Malagon Age: 36 yrs Sex: Female : 1985 Arrival Date: 03/16/2022 Time: 19:08 Bed 13 Private MD: Diagnosis: Incomplete spontaneous without complication Presentation: 03/16 19:53 Chief complaint: Patient states: "I am pretty sure I miscarriage yesterday. It was a tw5 pretty traumatic experience. This would have been my third .". Coronavirus screen: Vaccine status: Patient reports being unvaccinated. Ebola Screen: Patient negative for fever greater than or equal to 101.5 degrees Fahrenheit, and additional compatible Ebola Virus Disease symptoms Patient denies exposure to infectious person. Patient denies travel to an Ebola-affected area in the 21 days before illness onset. Initial Sepsis Screen: Does the patient meet any 2 criteria? No. Patient's initial sepsis screen is negative. Does the patient have a suspected source of infection? No. Patient's initial sepsis screen is negative. Risk Assessment: Do you want to hurt yourself or someone else? Patient reports no desire to harm self or others. Onset of symptoms was March 15, 2022. 19:53 Method Of Arrival: Ambulatory tw5 19:53 Acuity: IESHA 3 tw5 Triage Assessment: 19:55 General: Appears in no apparent distress. Behavior is calm, cooperative. Pain: Denies tw5 pain. : Reports vaginal bleeding that is light flow. 19:55 GI: Reports "Cramping was terrible yesterday. It was in my lower stomach and back. No tw5 cramping today.". : Reports vaginal bleeding that is "Heavy flow yesterday, it is light today.". 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 - Social history:: Smoking status: Patient denies any tobacco usage or history of. Screenin:08 [facility] ED Fall Risk Assessment (Adult) History of falling in the last 3 months, ke1 including since admission No falls in past 3 months (0 pts) Confusion or Disorientation No (0 pts) Intoxicated or Sedated No (0 pts) Impaired Gait No (0 pts) Mobility Assist Device Used No (0 pt) Altered Elimination No (0 pt) Score/Fall Risk Level 0 - 2 = Low Risk. Abuse screen: Denies threats or abuse. Nutritional screening: No deficits noted. Tuberculosis screening: No symptoms or risk factors identified. Vital Signs: 19:53 BP 104 / 74; Pulse 75; Resp 18; Temp 98.6; Pulse Ox 100% ; Weight 65.77 kg; Height 5 tw5 ft. 2 in. (157.48 cm); Pain 0/10; 22:32 BP 110 / 72; Pulse 72; Resp 19; Temp 98.5; Pulse Ox 100% on R/A; Pain 0/10; ke1 19:53 Body Mass Index 26.52 (65.77 kg, 157.48 cm) tw5 ED Course: 19:08 Patient arrived in ED. ja2 19:12 Katelyn Gandhi MD is Attending Physician. sd2 19:54 Triage completed. tw5 19:55 Arm band placed on. tw5 20:29 US 1st Trimest Single 1st Fetus In Process Unspecified. EDMS 20:44 Madhav Palafox, RN is Primary Nurse. ke1 21:08 Bed in low position. Call light in reach. Side rails up X 1. ke1 21:08 Type And Screen Sent. ke1 21:08 HCG-Quantitative Sent. ke1 21:08 CMP Sent. ke1 21:08 CBC with Diff Sent. ke1 21:08 Inserted saline lock: 20 gauge in right forearm, using aseptic technique. ke1 22:14 Edson Kong MD is Referral Physician. sd2 22:33 IV discontinued. ke1 22:33 No provider procedures requiring assistance completed. ke1 Administered Medications: No medications were administered Medication: 22:33 VIS not applicable for this client. ke1 Outcome: 22:15 Discharge ordered by . sd2 22:33 Admitted to Med/surg ke1 22:33 Condition: good 22:33 Discharge instructions given to patient. 22:34 Patient left the ED. ke1 Signatures: Dispatcher [employer] EDMS Vonnie Leiva ja2 Maty Celaya tw5 Madhav Palafox RN RN ke1 Katelyn Gandhi MD MD sd2
[2022-03-16 22:43] VITALS: O2SAT 100
[2022-03-16 22:44] VITALS: BP 110/72; TEMP 98.5
[2022-03-16 23:44] LABS: Urine Specific Gravity/Preg >1.030 (1.005-1.030)
== END 2022-03-16 22:34 | disposition home or self-care (01) ==
LOC: ER 19:05
DX: O03.4 Incomplete spontaneous abortion without complication (principal)
CPT/HCPCS: 36415; 76801; 80053; 81003; 81015; 81025; 84702; 85025; 86850; 86870; 86900; 86901